=== PATIENT | male | born 1980 | race Two or more races ===

== ENCOUNTER 2020-04-21 18:58 | Inpatient (IN) | payer MEDICAID ==
[~2020-04-21] VITALS: Ht 175.3 cm; Wt 138.3 kg
[~2020-04-21 18:58] MED LIST: ZOSYN IVPB 3.375 G in IV D5W 50ml IV ONE
--- NOTE | 2020-04-21 19:32 | NUR ---
PRANAV FROM A BOARD AND CARE TO ER BED 6. AWAKE BUT NON VERBAL. BROUGHT IN FOR WHAT APPEARS TO BE RESPIRATORY DISTRESS PER EMT REPORT. PT WAS NOTED GASPING FOR AIR AND DIAPHORETIC. PT WAS PLACED ON BVM AND DISTRESS GOT ALLIVIATED. PT WAS REPORTED WITH O2 SAT ABOVE 90% SINCE DRAIN TECHNICIAN TOOK PT. VENT SETTING AC18, VT600, O2 50% AND +5PEEP. WILL CONTINUE TO MONITOR PT
[2020-04-21 20:05] LABS: BASOPHILS # (AUTO) 0.1 /CMM (0.0-0.2); BASOPHILS % (AUTO) 0.3 % (0.0-2.0); EOSINOPHILS % (AUTO) 6.1 % (0.0-6.0); HEMATOCRIT 35 % (39-51); HEMOGLOBIN 11.3 g/dL (13.5-17.5); LYMPHOCYTES % (AUTO) 5.4 % (20.0-44.0); MEAN CORPUSCULAR HGB CONC 32 g/dl (31.0-36.0); MEAN CORPUSCULAR VOLUME 91 fL (80-96); MONOCYTES # (AUTO) 0.6 /CMM (0.1-1.30); MONOCYTES % (AUTO) 3.2 % (2.0-12.0); NEUTROPHILS # (AUTO) 16.1 /CMM (1.8-8.9); PLATELET COUNT (AUTO) 447 /CMM (150-450); RED BLOOD CELL COUNT(AUTO) 3.86 MIL/uL (4.5-6.0); WHITE BLOOD COUNT (AUTO) 18.9 K/uL (4.3-11.0)
[2020-04-21 20:10] LABS: ABG BASE EXCESS 3.5 mmol/L; ABG PCO2 45.5 mmHg (35.0-45.0); ABG PH 7.416 (7.350-7.450); ABG PO2 93.4 mmHg (75.0-100.0); AaDO2 574.1 mmHg; COHb 0.8 % (0.5-1.5); MetHb 0.3 % (0.0-1.5); O2Hb 95.9 % (94.0-97.0); PEEP,BG 5 cm H2O; SITE, ABG Right Radial; VT, ABG 600 mL
[2020-04-21 20:18] LABS: CALCIUM, SERUM 9.4 mg/dL (8.5-10.1); CARBON DIOXIDE 31 mmol/L (21-32); CHLORIDE 104 mmol/L (98-107); GLUCOSE 139 mg/dL (74-106); POTASSIUM 3.1 mmol/L (3.5-5.1); SODIUM SERUM 143 mmol/L (136-145); UREA NITROGEN, BLOOD 29 mg/dL (7-18)
[2020-04-21] MEDS ORDERED: VANCOMYCIN 1 GM in IV D5W 250 ML IV ONE (20:30)
[2020-04-21] MEDS ORDERED: PIPERACILLIN /TAZOBACTAM 3.375 G in IV D5W 50 ML IV ONE (20:30)
[2020-04-21] MEDS ORDERED: IV NS 0.9% 1,000 ML IV ONE (20:30)
[2020-04-21 20:33] LABS: ALANINE AMINOTRANSFERASE 9 U/L (12-78); ALBUMIN 2.5 g/dL (3.4-5.0); ALKALINE PHOSPHATASE 66 U/L (46-116); ASPARTATE AMINOTRANSFERASE 14 U/L (15-37); B-TYPE NATRIURETIC PEPTIDE 279 PG/ML (0-125); BILIRUBIN,DIRECT 0.1 mg/dL (0.0-0.2); BILIRUBIN,TOTAL 0.2 mg/dL (0.2-1.0); TOTAL PROTEIN, SERUM 8.3 g/dL (6.4-8.2)
[2020-04-21] MEDS ORDERED: IV NS 0.9% 250 ML IV ONE (20:43)
[2020-04-21] MEDS ORDERED: IOHEXOL-350 100 ML VIAL IV ONE (20:43)
[2020-04-21] MEDS ORDERED: CT SWABBABLE VALVE TRANS SET 1 EA INFUS.SET MC ONE (20:43)
--- NOTE | 2020-04-21 20:57 | NUR ---
LAB CALLED REGARDING COVID NEGATIVE RESULT.
[2020-04-21] MEDS ORDERED: PIPERACILLIN /TAZOBACTAM 3.375 G VIAL IV ONE (21:18)
[2020-04-21] MEDS ORDERED: VANCOMYCIN 1 GM VIAL ONE (21:18)
--- NOTE | 2020-04-21 21:19 | NUR ---
back from ct on [facility] with emt, rn and radio presenter
--- NOTE | 2020-04-21 21:58 | NUR ---
report given to joesph peralta for berto.
[2020-04-21] MEDS ORDERED: Z GUARD REMEDY 2 OZ OINT TP PRN (22:00)
[2020-04-21] MEDS ORDERED: ZOLPIDEM TARTRATE 5 MG TABLET PO PRN (22:00)
[2020-04-21] MEDS ORDERED: ACETAMINOPHEN 325 MG TABLET PO PRN (22:00)
[2020-04-21] MEDS ORDERED: ONDANSETRON HCL/PF 4 MG/2 ML VIAL IVP PRN (22:00)
[2020-04-21] MEDS ORDERED: MAGNESIUM HYDROXIDE 30 ML UDC PO PRN (22:00)
[2020-04-21] MEDS ORDERED: MAG HYDROX/AL HYDROX/SIMETH 30 ML UDC PO PRN (22:00)
--- NOTE | 2020-04-21 22:05 | NUR ---
Received report from INOCENCIO Varela for KRISTINA
--- NOTE | 2020-04-21 22:22 | NUR ---
pt transported to unit on [facility] with emt, rt and rn at bedside w/ acls protocol. nad during transport.
[2020-04-21] MEDS ORDERED: VANCOMYCIN 1 GM in IV D5W 250ml IV ONE (22:30)
[2020-04-21] MEDS ORDERED: VANCOMYCIN 2 GM in IV D5W 500 ML IV ONE (22:30)
[2020-04-21] MEDS: IV D5/0.45 NACL 1,000 ML IV PRN (22:36)
[2020-04-21 22:55] VITALS: BP 139/95
[2020-04-21 23:00] VITALS: BP 142/88
[2020-04-21] MEDS: POTASSIUM CL. PREMIX PERIPHER. 50 ML IV SCH (23:19)
--- NOTE | 2020-04-21 23:25 | NUR ---
FACETERSTOCK HANDLER FLOORPERSON NOTE: Pt transferred to unit via gurney accompanied by RN and EMT. Transferred to bed, hooked up to monitor, and bathed. Skin check done w/ wounds noted. Pt awake, opens eyes but does not track or follow commands. On trach and mechanical ventilation tolerating settings well. No SOB or resp distress noted. ANNELIESE midline patent and flushed. Dressing c/d/i. GT site intact, NPO dx. Restraints placed due to pt scratching/pulling at grady catheter. Grady catheter in place, patent and draining cloudy yellow urine via gravity. Safety measures in place. Will continue to monitor.
[2020-04-21 23:31] VITALS: BP 142/88
[2020-04-21] MEDS: ALBUTEROL FS 2.5 MG/0.5 ML VIAL.NEB NEB SCH (23:33)
[2020-04-21] MEDS: IPRATROPIUM NEB FS 0.5 MG/2.5 ML AMPUL.NEB NEB SCH (23:33)
[2020-04-22] VITALS (25 sets, daily range): BP systolic 120–178; BP diastolic 75–117
[2020-04-22] MEDS: POTASSIUM CL. PREMIX PERIPHER. 50 ML IV SCH ×3 (00:18→02:20)
[2020-04-22] MEDS ORDERED: PIPERACILLIN /TAZOBACTAM 3.375 G VIAL IV ONE (03:19)
[2020-04-22] MEDS: ALBUTEROL FS 2.5 MG/0.5 ML VIAL.NEB NEB SCH ×5 (03:29→19:49)
[2020-04-22] MEDS: IPRATROPIUM NEB FS 0.5 MG/2.5 ML AMPUL.NEB NEB SCH ×5 (03:29→19:49)
[2020-04-22] MEDS ORDERED: PIPERACILLIN /TAZOBACTAM 3.375 G in IV D5W 50 ML IV ONE (04:00)
[2020-04-22 05:19] LABS: CALCIUM, SERUM 9.1 mg/dL (8.5-10.1); MAGNESIUM 2.5 mg/dL (1.8-2.4); PHOSPHORUS 4.2 mg/dL (2.5-4.9); POTASSIUM 3.9 mmol/L (3.5-5.1)
[2020-04-22 05:31] LABS: THYROID STIMULATING HORMONE 1.348 uIU/mL (0.358-3.74)
[2020-04-22] MEDS ORDERED: VANCOMYCIN 1.25 GM in IV D5W 250 ML IV SCH (07:00)
--- NOTE | 2020-04-22 07:10 | NUR ---
PHOTOGRAMMETRIC SURVEYOR NOTES RECEIVED PATIENT AWAKE , TRACKS , ABLE TO FOLLOW SIMPLE COMMANDS , NOT IN ACUTE DISTRESS , RESPIRATIONS EVEN AND UNLABORED WITH SPO2 OF 100% VIA MECHANICAL VENT SETTINGS AC 18 TV 600 FIO2 100% AND PEEP OF 5 , TRACH OF SHILEY XLT [address] , SR 78 ON BEDSIDE MONITOR , GT PATENT AND INTACT CLAMPED , FC DRAINING VIA GRAVITY , BILATERAL SOFT WRIST RESTRAINS IN PLACE , ANNELIESE MIDLINE PATENT AND INTACT WITH D5 1/2 NS @ 75ML/HR INFUSING WELL , ALL NEEDS ATTENDED , WILL CONTINUE TO MONITOR .
--- NOTE | 2020-04-22 07:16 | NUR ---
DEALER SALES REP CLOSING NOTES: No acute changes noted throughout shift. Remains on vent settings tolerating settings well. No SOB or resp distress noted throughout shift. ANNELIESE mid patent and flushed. Zarate in place. Kept clean/dry. All due meds given as ordered. Safety measures in place. Endorsed to AM nurse for KRISTINA.
[2020-04-22] MEDS: HYDROCODONE/APAP 5/325MG TABLET PO PRN ×2 (07:18→18:46)
[2020-04-22] MEDS: VANCOMYCIN 1.25 GM in IV D5W 250 ML IV SCH ×3 (07:37→21:25)
--- NOTE | 2020-04-22 07:46 | NUR ---
BUGGY MAN NOTES PAGED NURSING CHANNELING MACHINE RUNNER F/U FOR PICC INSERTION AND MEDICATION RECON
[2020-04-22] MEDS ORDERED: FINA5TAB4 GT (08:00)
[2020-04-22] MEDS ORDERED: HYDR100T27 GT (08:00)
[2020-04-22] MEDS ORDERED: LISI-603 GT (08:00)
[2020-04-22] MEDS ORDERED: AMLO-212 GT (08:00)
[2020-04-22] MEDS ORDERED: POLY17PO4 GT (08:00)
[2020-04-22] MEDS ORDERED: ENOX30DI SQ (08:00)
[2020-04-22] MEDS ORDERED: METO50TA16 GT (08:00)
[2020-04-22] MEDS ORDERED: NYST15PO4 TP (08:00)
[2020-04-22] MEDS ORDERED: BUME1TAB8 PO (08:00)
[2020-04-22] MEDS ORDERED: LEVO25TA7 GT (08:00)
[2020-04-22] MEDS ORDERED: DOXA2TAB2 GT (08:00)
--- NOTE | 2020-04-22 08:00 | NUR ---
RT Pt received trached on mechanical ventilation with noted settings. Vent is plugged into red outlet. No SOB or respiratory distress noted. Addendum: 04/22/20 at 1138 by BRIANA FRASER RT Amended: Links added.
[2020-04-22] MEDS ORDERED: MULT-754 GT (08:04)
[2020-04-22] MEDS ORDERED: ZINC1CAP2 GT (08:04)
[2020-04-22] MEDS ORDERED: FERR325T23 GT (08:04)
[2020-04-22] MEDS ORDERED: ASCO-352 GT (08:04)
[2020-04-22] MEDS ORDERED: ACID1TAB12 GT (08:56)
[2020-04-22] MEDS ORDERED: CLON0.3T GT (08:56)
[2020-04-22] MEDS ORDERED: MORP15TA GT (08:56)
--- NOTE | 2020-04-22 08:57 | NUR ---
PEST CONTROLLER ASSISTANT NOTES MEDICATION RECON PLACED ,
[2020-04-22] MEDS ORDERED: PANTOPRAZOLE 40 MG VIAL IV SCH (09:00)
[2020-04-22] MEDS: FAMOTIDINE/PF INJ 20 MG/2 ML VIAL IV SCH ×2 (09:09→21:24)
[2020-04-22] MEDS: PIPERACILLIN /TAZOBACTAM 3.375 G in IV D5W 100 ML IV SCH ×2 (09:09→17:03)
[2020-04-22 09:13] LABS: BASOPHILS # (AUTO) 0.1 /CMM (0.0-0.2); EOSINOPHILS % (AUTO) 9.8 % (0.0-6.0); HEMATOCRIT 34 % (39-51); LYMPHOCYTES # (AUTO) 2.2 /CMM (0.8-4.8); LYMPHOCYTES % (AUTO) 17.3 % (20.0-44.0); MEAN CORPUSCULAR HGB CONC 32 g/dl (31.0-36.0); MEAN CORPUSCULAR VOLUME 92 fL (80-96); MONOCYTES # (AUTO) 0.8 /CMM (0.1-1.30); MONOCYTES % (AUTO) 6.1 % (2.0-12.0); NEUTROPHILS # (AUTO) 8.4 /CMM (1.8-8.9); NEUTROPHILS % (AUTO) 65.8 % (43.0-81.0); PLATELET COUNT (AUTO) 404 /CMM (150-450); RED BLOOD CELL COUNT(AUTO) 3.76 MIL/uL (4.5-6.0); WHITE BLOOD COUNT (AUTO) 12.7 K/uL (4.3-11.0)
--- NOTE | 2020-04-22 09:33 | NUR ---
POULTRYMAN NOTES PAGED EPIC (MISA LENA) PT BP IS ELEVATED 178/107 , AND TO F/U MED RECON, SPOKE WITH MEGAN LEFT A MESSAGE , AWAITING FOR CALL BACK
--- NOTE | 2020-04-22 10:30 | NUR ---
CHANGE CONTROL SPECIALIST NOTES RECEIVED AN ORDER OF HYDRALAZINE 10MG Q4 PRN FOR SBP > 165MMHG , ORDER CARRIED OUT
[2020-04-22] MEDS ORDERED: hydrALAZINE HCL IV 20 MG VIAL IV PRN (11:00)
--- NOTE | 2020-04-22 11:28 | NUR ---
VENEER SORTER NOTES TRANSFERED PT TO [facility] BED , PT STABLE , NO ACUTE EVENTS NOTED , WILL CONTINUE TO MONITOR .
[2020-04-22] MEDS: IV D5/0.45 NACL 1,000 ML IV PRN (14:28)
--- NOTE | 2020-04-22 17:20 | NUR ---
HEAT TREAT FURNACE OPERATOR NOTES OK TO DOWNGRADE PER DR NUÑEZ IF FIO2 TITRATED DOWN , CURRENT FIO2 OF 60% WITH NO SIGNS OF DISTRESS , SPO2 OF 100% , MD AWARE ,WILL CONTINUE TO MONITOR
--- NOTE | 2020-04-22 17:23 | NUR ---
WEB PRESS OPERATOR APPRENTICE NOTES NOTIFIED DR MISA PAREDES TO REVIEW HOME MEDS , JAVA CORE DEVELOPER AWARE .
--- NOTE | 2020-04-22 17:23 | NUR ---
SPORTS RECRUITER NOTES PT TOLERATING CURRENT VENT SETTINGS WITH FIO2 OF 45% WITH NO SIGNS OF DISTRESS , VS STABLE , WILL CONTINUE TO MONITOR .
[2020-04-22] MEDS: ENALAPRILAT INJ (1.25 MG/ML) 1.25 MG/ML VIAL IV PRN (18:06)
--- NOTE | 2020-04-22 18:51 | NUR ---
BARREL SCRAPER NOTES PATIENT STABLE AT THIS TIME , ABLE TO FOLLOW SIMPLE COMMANDS , NOT IN ACUTE DISTRESS , RESPIRATIONS EVEN AND UNLABORED WITH SPO2 OF 100% VIA MECHANICAL VENT SETTINGS AC 18 TV 600 FIO2 45% AND PEEP OF 5 , TRACH OF SHILEY XLT IN PLACE , SR 72 ON BEDSIDE MONITOR , GT PATENT AND INTACT CLAMPED , FC DRAINING VIA GRAVITY , RIGHT WRIST RESTRAINS IN PLACE , JUNIE MIDLINE PATENT AND INTACT WITH D5 1/2 NS @ 75ML/HR AND NS @ TKO INFUSING WELL , ALL NEEDS ATTENDED , REPORT GIVEN TO JEREL FOR CONTINUITY OF CARE .
--- NOTE | 2020-04-22 19:14 | NUR ---
FLIGHT STEWARD OPENING NOTES: Rec'd pt in bed, awake. On trach and mechanical ventilation tolerating settings well. No SOB or resp distress noted. SR on tele monitor. GT intact, patent and clamped, pt NPO. JUNIE midline patent and flushed w/ D5 1/2NS infusing at 75ml/hr and NS at TKO. Right wrist restraint in place. Will remove and check circulation per protocol. Zarate catheter patent and draining urine via gravity. Safety measures in place. Will continue to monitor.
[2020-04-22] MEDS ORDERED: hydrALAZINE HCL 50 MG TABLET PO PRN (20:30)
--- NOTE | 2020-04-22 20:40 | NUR ---
wringer operator gave report to INOCENCIO Vázquez for KRISTINA.
--- NOTE | 2020-04-22 20:54 | NUR ---
Transferred pt to rm [id number] via ACLS protocols w/ RT
--- NOTE | 2020-04-22 21:03 | NUR ---
R DEVELOPERPRESIDENT COLLEGE OR UNIVERSITY NOTES PATIENT TRANSFERRED FROM ICU VIA ACLS PROTOCOL IN STABLE CONDITION; BARIATRIC BED PRESENT. AWAKE, NONVERBAL, ABLE TO OPEN EYES. VENT DEPENDENT; TOLERATING SETTINGS WELL; NO S/S OF ACUTE RESPIRATORY DISTRESS; BREATHING IS EVEN AND UNLABORED. TELE MONITOR READING NSR. MIDLINE PRESENT ON RIGHT UPPER ARM, INTACT & PATENT. MARIN CATH PRESENT; CLEAR YELLOW URINE DRAINING WELL. SAFETY MEASURES IN PLACE AND PATIENT'S NEEDS MET. BED LOCKED, ALARM ON, SIDE RAILS X3, CALL LIGHT WITHIN REACH. WILL CONTINUE TO MONITOR.
[2020-04-22] MEDS: CLONIDINE HCL 0.1 MG TABLET GT SCH (21:23)
[2020-04-22] MEDS: BUMETANIDE (1 MG) 1 MG TABLET PO SCH (21:24)
[2020-04-22] MEDS: AMLODIPINE BESYLATE 5 MG TABLET GT SCH (21:24)
[2020-04-22] MEDS: DOXAZOSIN MESYLATE (1 MG) 1 MG TABLET PO SCH (21:24)
[2020-04-22] MEDS: LISINOPRIL (20MG) 20 MG TABLET GT SCH (21:24)
[2020-04-23] VITALS (7 sets, daily range): BP systolic 145–185; BP diastolic 89–117
[2020-04-23] MEDS: IPRATROPIUM NEB FS 0.5 MG/2.5 ML AMPUL.NEB NEB SCH ×7 (00:03→23:44)
[2020-04-23] MEDS: ALBUTEROL FS 2.5 MG/0.5 ML VIAL.NEB NEB SCH ×7 (00:03→23:44)
[2020-04-23] MEDS: PIPERACILLIN /TAZOBACTAM 3.375 G in IV D5W 100 ML IV SCH ×3 (02:13→18:09)
[2020-04-23] MEDS: VANCOMYCIN 1.25 GM in IV D5W 250 ML IV SCH (05:00)
[2020-04-23] MEDS: CLONIDINE HCL 0.1 MG TABLET GT SCH ×3 (05:55→21:32)
--- NOTE | 2020-04-23 05:55 | NUR ---
TELEPHONE RECORDER NOTES PATIENT'S MIDLINE ON RIGHT UPPER ARM DISLODGED DURING PATIENT CARE. CHARGE NURSE AND NURSING LANDSCAPE TECHNICIAN MADE AWARE. AWAITING NEW MIDLINE INSERTION.
--- NOTE | 2020-04-23 07:10 | NUR ---
PAPER MILL SUPERVISOR CLOSING NOTES PATIENT SLEEPING. TOLERATING VENT SETTINGS WELL; NO S/S OF ACUTE RESPIRATORY DISTRESS; BREATHING IS EVEN AND UNLABORED; CONTINUOUS PULSE OX READING 100%. TELE MONITOR READING NSR. MARIN CATH REMAINS INTACT & PATENT. SAFETY MEASURES IN PLACE AND PATIENT'S NEEDS MET. BED LOCKED, HOB ELEVATED, SIDE RAILS X3, CALL LIGHT WITHIN REACH. ENDORSED TO DAY SHIFT RN PLAN OF CARE.
--- NOTE | 2020-04-23 07:10 | NUR ---
RN OPENING NOTES RECEIVED PT SLEEPING BUT EASILY AROUSED. TOLERATING VENT SETTINGS WELL. NO S/S OF ACUTE RESPIRATORY DISTRESS. CONTINUOUS PULSE OX READING 100%. TELE MONITOR READING NSR. MARIN CATH INTACT & PATENT. SAFETY MEASURES IN PLACE. CALL LIGHT WITHIN REACH. BED LOCKED AND AT LOWEST POSITION WITH SIDE RAILS X3. HOB ELEVATED. WILL CONTINUE TO MONITOR
[2020-04-23] MEDS: ZINC SULFATE 220 MG CAPSULE GT SCH (09:45)
[2020-04-23] MEDS: POLYETHYLENE GLYCOL 3350 17 GM POWD.PACK GT SCH (09:45)
[2020-04-23] MEDS: LEVOTHYROXINE SODIUM 25 MCG TABLET GT SCH (09:46)
[2020-04-23] MEDS: FINASTERIDE (5 MG) 5 MG TABLET GT SCH (09:46)
[2020-04-23] MEDS: AMLODIPINE BESYLATE 5 MG TABLET GT SCH ×2 (09:46→21:33)
[2020-04-23] MEDS: METOPROLOL TARTRATE 50 MG TABLET GT SCH ×2 (09:47→16:54)
[2020-04-23] MEDS: BUMETANIDE (1 MG) 1 MG TABLET PO SCH ×2 (09:47→21:37)
[2020-04-23] MEDS: LISINOPRIL (20MG) 20 MG TABLET GT SCH ×2 (09:47→21:35)
[2020-04-23] MEDS: FERROUS SULFATE (325 MG) 325 MG/TAB TABLET GT SCH (09:47)
[2020-04-23] MEDS: ACIDOPHILUS/BULGARICUS 1 EACH TAB.CHEW GT SCH (09:48)
[2020-04-23] MEDS: FAMOTIDINE/PF INJ 20 MG/2 ML VIAL IV SCH ×2 (09:48→21:34)
[2020-04-23] MEDS: NYSTATIN TOP POWDER 15 GM BOTTLE TP SCH ×2 (09:48→16:54)
[2020-04-23 09:51] LABS: CALCIUM, SERUM 8.9 mg/dL (8.5-10.1); CREATININE 0.8 mg/dL (0.6-1.3); POTASSIUM 2.9 mmol/L (3.5-5.1)
--- NOTE | 2020-04-23 19:20 | NUR ---
RN CLOSING NOTES PT RESTING IN BED. TOLERATING VENT SETTINGS WELL. NO S/S OF ACUTE RESPIRATORY DISTRESS. CONTINUOUS PULSE OX READING 100%. TELE MONITOR READING NSR. MARIN CATH INTACT & PATENT. JUNIE MIDLINE INSERTED, INTACT AND PATENT. SAFETY MEASURES IN PLACE. CALL LIGHT WITHIN REACH. BED LOCKED AND AT LOWEST POSITION WITH SIDE RAILS X3. HOB ELEVATED. WILL ENDORSE TO NIGHT NURSE FOR KRISTINA
--- NOTE | 2020-04-23 19:31 | NUR ---
SERVICE CLERK OPENING NOTES PATIENT AWAKE, NONVERBAL, OPENS EYES. TOLERATING VENT SETTINGS WELL; NO S/S OF ACUTE RESPIRATORY DISTRESS; BREATHING IS EVEN AND UNLABORED. TELE MONITOR READING NSR. MARIN CATH PRESENT AND DRAINING WELL. MIDLINE PRESENT ON RIGHT UPPER ARM WITH IVPB ZOSYN RUNNING AT 25 ML/HR. SOFT RESTRAINT PRESENT ON RIGHT WRIST FOR PATIENT SAFETY; SKIN CIRCULATION WNL. SAFETY MEASURES IN PLACE AND PATIENT'S NEEDS MET. BED LOCKED, HOB ELEVATED, SIDE RAILS X3, CALL LIGHT WITHIN REACH. WILL CONTINUE TO MONITOR.
[2020-04-23] MEDS ORDERED: VANCOMYCIN 1.25 GM in IV D5W 250 ML IV SCH (21:00)
[2020-04-23] MEDS: DOXAZOSIN MESYLATE (1 MG) 1 MG TABLET PO SCH (21:34)
--- NOTE | 2020-04-23 21:34 | NUR ---
WATER PUMPING STATION ENGINEER NOTE PATIENT HAD AN EPISODE OF VOMITING; LIGHT BROWNISH CLEAR FLUID NOTED. ADMINISTERED PRN ZOFRAN IV. WILL CONTINUE TO MONITOR.
[2020-04-24] VITALS (7 sets, daily range): BP systolic 125–168; BP diastolic 85–127
[2020-04-24] MEDS ORDERED: IPRATROPIUM NEB FS 0.5 MG/2.5 ML AMPUL.NEB NEB PRN (01:00)
[2020-04-24] MEDS ORDERED: ALBUTEROL FS 2.5 MG/3 ML VIAL.NEB NEB PRN (01:00)
[2020-04-24] MEDS ORDERED: POTASSIUM CHLORIDE 10 MEQ/50 ML PREMIXED IVPB FOR PERIPHERAL LINE IV ONE (01:30)
[2020-04-24] MEDS: ENALAPRILAT INJ (1.25 MG/ML) 1.25 MG/ML VIAL IV PRN (01:47)
--- NOTE | 2020-04-24 01:47 | NUR ---
ASSISTANT GENERAL MANAGER NOTE PATIENT'S BP: 163/118, HR: 104. ADMINISTERED PRN VASOTEC 1.25 MG IV PER MD ORDERS. WILL CONTINUE TO MONITOR.
--- NOTE | 2020-04-24 01:47 | NUR ---
TURNING MACHINE OPERATOR HELPER NOTES PATIENT'S BP: 163/118, HR: 104. ADMINISTERED PRN VASOTEC 1.25MG IV PER MD ORDERS. WILL CONTINUE TO MONITOR.
[2020-04-24] MEDS: PIPERACILLIN /TAZOBACTAM 3.375 G in IV D5W 100 ML IV SCH ×2 (01:51→09:55)
[2020-04-24] MEDS: POTASSIUM CL. PREMIX PERIPHER. 50 ML IV SCH ×10 (01:53→15:05)
[2020-04-24] MEDS: ALBUTEROL FS 2.5 MG/0.5 ML VIAL.NEB NEB SCH ×6 (03:41→23:13)
[2020-04-24] MEDS: IPRATROPIUM NEB FS 0.5 MG/2.5 ML AMPUL.NEB NEB SCH ×6 (03:41→23:13)
[2020-04-24] MEDS: CLONIDINE HCL 0.1 MG TABLET GT SCH ×3 (05:29→21:44)
--- NOTE | 2020-04-24 06:10 | NUR ---
ASSAULT BOAT COXSWAIN NOTE PATIENT EXPERIENCED EPISODE OF VOMITING. BROWNISH FLUID PRESENT IN GTUBE; ASPIRATED 700 CC OF DARK BROWNISH GREEN FLUID FROM GTUBE. NOTIFIED LABORATORY ANIMAL CARE VETERINARIAN SANTO BOLTON.
[2020-04-24 07:20] LABS: BASOPHILS # (AUTO) 0.1 /CMM (0.0-0.2); BASOPHILS % (AUTO) 0.4 % (0.0-2.0); EOSINOPHILS % (AUTO) 4.7 % (0.0-6.0); HEMATOCRIT 35 % (39-51); HEMOGLOBIN 11.4 g/dL (13.5-17.5); LYMPHOCYTES # (AUTO) 1.3 /CMM (0.8-4.8); LYMPHOCYTES % (AUTO) 9.9 % (20.0-44.0); MEAN CORPUSCULAR HGB CONC 32 g/dl (31.0-36.0); MEAN CORPUSCULAR VOLUME 90 fL (80-96); MONOCYTES # (AUTO) 0.7 /CMM (0.1-1.30); MONOCYTES % (AUTO) 5.7 % (2.0-12.0); NEUTROPHILS # (AUTO) 10.1 /CMM (1.8-8.9); NEUTROPHILS % (AUTO) 79.3 % (43.0-81.0); PLATELET COUNT (AUTO) 421 /CMM (150-450); RED BLOOD CELL COUNT(AUTO) 3.92 MIL/uL (4.5-6.0); WHITE BLOOD COUNT (AUTO) 12.8 K/uL (4.3-11.0)
--- NOTE | 2020-04-24 07:30 | NUR ---
RN OPENING NOTE PATIENT AWAKE, NONVERBAL, OPENS EYES OCCASIONALLY TO VERBAL STIMULI. PT ON VENT SETTINGS PER MD ORDER, TOLERATING WELL, NO SIGNS OF RESP DISTRESS OR SOB; BREATHING IS EVEN AND UNLABORED. TELE MONITOR READING NSR HR IN THE 90s. PT HAS MARIN CATH PRESENT DRAINING TO GRAVITY WITH YELLOW URINE. PT HAS JUNIE MIDLINE INFUSING 75ML/HR. SOFT RESTRAINT PRESENT ON RIGHT WRIST FOR PATIENT SAFETY; SKIN CIRCULATION WNL. PT HAS SACRAL WOUND AND SCRATCHES THROUGHOUT ARMS. PER RN MORNING REPORT PT HAD 2 VOMITING EPISODES ALONG WITH ASPIRATING 700ML BROWN FLUID FROM G-TUBE. WILL NOTIFY MD. SAFETY MEASURES IN PLACE AND PATIENT'S NEEDS MET. BED LOCKED, HOB ELEVATED, SIDE RAILS X3, CALL LIGHT WITHIN REACH. WILL CONTINUE TO MONITOR.
--- NOTE | 2020-04-24 07:46 | NUR ---
SUPERINTENDENT METER TESTS CLOSING NOTES PATIENT NONVERBAL, OPENS EYES. TOLERATING VENT SETTINGS WELL; NO S/S OF ACUTE RESPIRATORY DISTRESS; BREATHING IS EVEN AND UNLABORED. NO S/S OF PAIN NOTED. TELE MONITOR READING NSR. MARIN CATH REMAINS INTACT & PATENT. MIDLINE PRESENT ON RIGHT UPPER ARM WITH KCL RUNNING AT 50 ML/HR. SOFT RESTRAINT PRESENT ON RIGHT WRIST FOR PATIENT SAFETY; SKIN CIRCULATION WNL. SAFETY MEASURES IN PLACE AND PATIENT'S NEEDS MET. BED LOCKED, HOB ELEVATED, SIDE RAILS X3, CALL LIGHT WITHIN REACH. ENDORSED TO DAY SHIFT RN PLAN OF CARE.
[2020-04-24 07:54] LABS: CALCIUM, SERUM 8.8 mg/dL (8.5-10.1); MAGNESIUM 2.2 mg/dL (1.8-2.4); PHOSPHORUS 4.3 mg/dL (2.5-4.9); POTASSIUM 3.2 mmol/L (3.5-5.1)
[2020-04-24] MEDS: ACIDOPHILUS/BULGARICUS 1 EACH TAB.CHEW GT SCH (08:58)
[2020-04-24] MEDS: POLYETHYLENE GLYCOL 3350 17 GM POWD.PACK GT SCH (08:58)
[2020-04-24] MEDS: LEVOTHYROXINE SODIUM 25 MCG TABLET GT SCH (08:58)
[2020-04-24] MEDS: BUMETANIDE (1 MG) 1 MG TABLET PO SCH ×2 (08:58→21:45)
[2020-04-24] MEDS: ZINC SULFATE 220 MG CAPSULE GT SCH (08:59)
[2020-04-24] MEDS: FAMOTIDINE/PF INJ 20 MG/2 ML VIAL IV SCH ×2 (08:59→21:46)
[2020-04-24] MEDS: FERROUS SULFATE (325 MG) 325 MG/TAB TABLET GT SCH (08:59)
[2020-04-24] MEDS: METOPROLOL TARTRATE 50 MG TABLET GT SCH ×2 (09:00→16:50)
[2020-04-24] MEDS: AMLODIPINE BESYLATE 5 MG TABLET GT SCH ×2 (09:00→21:45)
[2020-04-24] MEDS: FINASTERIDE (5 MG) 5 MG TABLET GT SCH (09:01)
[2020-04-24] MEDS: LISINOPRIL (20MG) 20 MG TABLET GT SCH ×2 (09:01→21:46)
[2020-04-24] MEDS: NYSTATIN TOP POWDER 15 GM BOTTLE TP SCH (09:55)
--- NOTE | 2020-04-24 10:00 | NUR ---
RN NOTE PER PHARMACIST MANAGET. OKAY TO INCREASE PIPERICILLIN IV ANTIBIOTIC TO 200ML/HR TO MAKE TIME TO INFUSE VANCO IV AFTERWARDS THEY ARE NOT COMPATIBLE.
--- NOTE | 2020-04-24 10:10 | NUR ---
RN NOTE WITHDREW 70ML OF BROWN LIQUID FROM PT'S GTUBE. NOTIFIED DR MAYER ABOUT 700ML BROWN FLUID WITHDRAWN LAST SHIFT AND PROJECTILE VOMITUS x2 LAST SHIFT. PER DR MAYER, GIVE ALL GTUBE MEDS, REGLAN 5MG IV TID AND VASOTEC 1.25MG IV Q4 PRN FOR SBP > 165
[2020-04-24] MEDS: VANCOMYCIN 1 GM in IV D5W 250ml IV SCH ×2 (10:54→21:47)
[2020-04-24] MEDS ORDERED: ENALAPRILAT INJ (1.25 MG/ML) 1.25 MG/ML VIAL IV PRN (11:00)
[2020-04-24] MEDS: DAKINS QUARTER STRENGTH (0.125%) 480 ML BOTTLE TOP SCH (12:26)
[2020-04-24] MEDS: METOCLOPRAMIDE HCL 10 MG/2 ML VIAL IV SCH ×2 (12:33→16:50)
--- NOTE | 2020-04-24 13:20 | NUR ---
RECORDS MANAGER NOTES RECEIVED REPORT FROM INOCENCIO JONES. PATIENT RECEIVED AWAKE IN BED A/O X3. ABLE TO MAKE NEEDS KNOWN. ON ROOM AIR, BREATHING EVEN AND UNLABORED. PT ON B/L SOFT WRIST RESTRAINTS, SKIN IS INTACT WITH GOOD CIRCULATION NOTED. TELEMONITORING SHOWS SR WITH HR ON 80''S, NO C/O OF CARDIAC DISTRESS VOICED. MARIN DRAINING URINE. ANNELIESE PICC LINE IN PLACE WITH HEPARIN DRIP INFUSING AT 1600U/HR (32ML/HR). SAFETY MEASURES MAINTAINED: , BED IN LOWEST POSITION, LOCKED, SIDE RAILS UP X2, CALL LIGHT WITHIN REACH. WILL CONTINUE TO MONITOR PATIENT FOR ANY CHANGES. Addendum: 04/24/20 at 1645 by AROLDO GABRIEL RN CORRECTIONS: THIS PROGRESS NOTES IS FOR ANOTHER PATIENT . SORRY!
--- NOTE | 2020-04-24 13:50 | NUR ---
RN NOTE GAVE REPORT TO CHENG PAINTER FOR KRISTINA. PT IN STABLE CONDITION. SAFETY PRECAUTIONS IN PLACE
--- NOTE | 2020-04-24 13:58 | NUR ---
DIRECTOR OF FINANCE NOTES RECEIVED REPORT FROM INOCENCIO CHARLES. PATIENT IN BED LYING AT MODERATE HIGH BACKREST. A/O X 1. OPEN EYES TO TACTILE AND VERBAL STIMULI. PT ON MECHANICAL VENT AT PRESCRIBED PARAMETERS, TOLERATING SETTINGS WELL WITH NO ACUTE RESPIRATORY DISTRESS NOTED. PT WITH RIGHT SOFT WRIST RESTRAINT, GOOD CIRCULATION NOTED. TELE-MONITORING SHOWS SR WITH HR ON 90'S AT THIS TIME, NO S/S OF CARDIAC DISTRESS NOTED. G-TUBE IN PLACE AND PATENT, FEEDING ON HOLD PER DR MAYER. MARIN DRAINING URINE. JUNIE PICC LINE IN PLACE, IVF INFUSING ORDERED. SAFETY MEASURES MAINTAINED: BED IN LOWEST POSITION, LOCKED, SIDE RAILS UP X3, CALL LIGHT WITHIN REACH. WILL CONTINUE TO MONITOR PATIENT FOR ANY CHANGES.
[2020-04-24] MEDS: ZOSYN IVPB 3.375 G in IV D5W 50ml IV SCH ×2 (16:17→23:53)
[2020-04-24] MEDS: CLOTRIMAZOLE 1% 15 GM TUBE TP SCH (16:49)
--- NOTE | 2020-04-24 18:41 | NUR ---
BARGAIN TABLE CLERK CLOSING NOTES PATIENT ASLEEP IN BED AT THIS TIME, AWAKENS TO TACTILE AND VERBAL STIMULI. HOB KEPT ELEVATED. MAINTAINED ON MECHANICAL VENTILATOR AT PRESCRIBED PARAMETERS, TOLERATING SETTINGS WELL, NO ACUTE RESPIRATORY DISTRESS NOTED DURING SHIFT. RIGHT SOFT WRIST RESTRAINT IN PLACE, GOOD PERIPHERAL PULSE NOTED. TELE-MONITORING SHOWS SR WITH HR ON 90'S AT THIS TIME, NO S/S OF CARDIAC DISTRESS NOTED. G-TUBE IN PLACE, PATENT AND CLAMPED. FEEDING ON HOLD PER DR MAYER. PT STILL NOTED WITH THIN BROWNISH SECRETIONS ON G-TUBE. MARIN DRAINING CLOUDY YELLOWISH URINE. JUNIE PICC LINE IN PLACE, IVF INFUSING ORDERED. PT TURNED AND REPOSITIONED Q 2HRS AND PRN. ALL NEEDS AND CARE ANTICIPATED AND MET. SAFETY MEASURES MAINTAINED: BED IN LOWEST POSITION, LOCKED, SIDE RAILS UP X3, CALL LIGHT WITHIN REACH. WILL ENDORSE TO SMALL LOT OPERATOR NURSE FOR KRISTINA.
[2020-04-24] MEDS: IV D5/0.45 NACL 1,000 ML IV PRN (19:17)
--- NOTE | 2020-04-24 20:06 | NUR ---
TELE/RN OPENING NOTE Patient asleep in bed, A/O x1, non-verbal, opens eyes to stimuli. HOB elevated Tele monitor reading sinus rhythm. Patient on mechanical ventilation: Shiley 7, AC 18 TV600 PEEP5 YxO800%. No acute distress or SOB noted. Skin warm, pink, dry. Generalized abrasions noted throughout body. Right wrist restraint in place, brachial pulses 2+, symmetrical. No signs of skin breakdown. Sacral wound noted, minimal drainage. G-tube clamped per MD order. JUNIE midline running D51/2 NS @ 75 ml/hr, no signs of redness or infiltration. Zarate catheter in place, urine output clear and yellow. Bony prominences off loaded. Bed in low position, wheels locked, side rails up x2, call light within reach.
[2020-04-24] MEDS: DOXAZOSIN MESYLATE (1 MG) 1 MG TABLET PO SCH (21:44)
--- NOTE | 2020-04-25 | NUR ---
RECEIVED CRITICAL LAB VANCO TROUGH [address] MONTEIRO . PER DR MONTEIRO NO ORDER.,DOSE PER PHARMACY. CALLED [facility], AND RECEIVED AN ORDER FOR VANCO TROUGH SCHEDULED FOR 0800 O'CLOCK.
[2020-04-25] MEDS: ENALAPRILAT INJ (1.25 MG/ML) 1.25 MG/ML VIAL IV PRN (02:30)
--- NOTE | 2020-04-25 02:35 | NUR ---
TELE/RN NOTE Patient BP193/92 P92. Administered PRN vasotec as ordered. Will continue to monitor.
[2020-04-25] MEDS: ALBUTEROL FS 2.5 MG/0.5 ML VIAL.NEB NEB SCH ×2 (03:52→07:40)
[2020-04-25] MEDS: IPRATROPIUM NEB FS 0.5 MG/2.5 ML AMPUL.NEB NEB SCH ×6 (03:52→23:28)
[2020-04-25] MEDS: ZOSYN IVPB 3.375 G in IV D5W 50ml IV SCH ×4 (04:25→22:44)
[2020-04-25] MEDS: CLONIDINE HCL 0.1 MG TABLET GT SCH ×3 (04:29→21:18)
--- NOTE | 2020-04-25 06:49 | NUR ---
TELE/RN CLOSING NOTE Patient asleep in bed, A/O x1, non-verbal, opens eyes to stimuli. HOB elevated. Tele monitor reading sinus rhythm. Patient on mechanical ventilation: Shiley 7, AC 18 TV600 PEEP5 FtE607%. No acute distress or SOB noted. Right wrist restraint in place, brachial pulses 2+, symmetrical. No signs of skin breakdown. Sacral wound noted, dressing changed. G-tube clamped per MD order. JUNIE midline running D51/2 NS @ 75 ml/hr, no signs of redness or infiltration. Zarate catheter in place, urine output clear and yellow. Bony prominences off loaded. Bed in low position, wheels locked, side rails up x2, call light within reach.
--- NOTE | 2020-04-25 07:34 | NUR ---
WOUND CARE CONSULT: (LATE ENTRY) PT WAS SEEN ON 04/24/20 FOR SKIN ASSESSMENT. PT PRESENTED WITH SCRATCH MCRAE, UNSTAGEABLE SACRAL ULCER AND RASH WITH REDNESS TO ABDOMINAL/GROIN FOLDS, PRESENT ON ADMISSION. RECOMMEND SURGICAL CONSULT. DR OWEN NAIK WAS NOTIFIED OF CONSULT REQUEST. RECOMMENDATIONS MADE FOR WOUND CARE AND SKIN PROTECTION. DISCUSSED WITH NURSING STAFF. ENERGY ADVISOR WAS NOTIFIED OF PT SCRATCHING BEHAVIOR. PT IS ON [facility] AIR BED. MD IN AGREEMENT WITH PLAN OF CARE.
[2020-04-25 07:55] LABS: BASOPHILS # (AUTO) 0.1 /CMM (0.0-0.2); BASOPHILS % (AUTO) 1.1 % (0.0-2.0); EOSINOPHILS % (AUTO) 10.6 % (0.0-6.0); HEMATOCRIT 32 % (39-51); HEMOGLOBIN 10.3 g/dL (13.5-17.5); LYMPHOCYTES % (AUTO) 16.1 % (20.0-44.0); MEAN CORPUSCULAR HGB CONC 32 g/dl (31.0-36.0); MEAN CORPUSCULAR VOLUME 92 fL (80-96); MONOCYTES # (AUTO) 0.9 /CMM (0.1-1.30); MONOCYTES % (AUTO) 7.5 % (2.0-12.0); NEUTROPHILS # (AUTO) 8.1 /CMM (1.8-8.9); NEUTROPHILS % (AUTO) 64.7 % (43.0-81.0); PLATELET COUNT (AUTO) 358 /CMM (150-450); RED BLOOD CELL COUNT(AUTO) 3.48 MIL/uL (4.5-6.0); WHITE BLOOD COUNT (AUTO) 12.5 K/uL (4.3-11.0)
[2020-04-25 07:57] LABS: CALCIUM, SERUM 8.4 mg/dL (8.5-10.1); CREATININE 1.6 mg/dL (0.6-1.3); MAGNESIUM 2.1 mg/dL (1.8-2.4); PHOSPHORUS 4.2 mg/dL (2.5-4.9); POTASSIUM 3.2 mmol/L (3.5-5.1)
[2020-04-25 08:00] VITALS: BP 152/89
--- NOTE | 2020-04-25 08:05 | NUR ---
CLINIC LICENSED PRACTICAL NURSE NOTE PATIENT ON VENT TOLERATING VENT SETTINGS WELL. PATIENT IN BED RESTING COMFORTABLY. PATIENT IN NO ACUTE DISTRESS. NO SOB NOTED. PATIENT BREATHING IS EVEN AND UNLABORED. HOB IS ELEVATED. GTUBE PATENT AND INTACT. PATIENT ON CARDIAC MONITORING READING SINUS RHYTHM HR 78. PATIENT BED ALARM IS ON. SAFETY PRECAUTIONS IN PLACE. PATIENT BED IS LOCKED AND IN LOWEST POSITION. CALL LIGHT WITHIN REACH. WILL CONTINUE TO MONITOR.
[2020-04-25] MEDS: POLYETHYLENE GLYCOL 3350 17 GM POWD.PACK GT SCH (08:28)
[2020-04-25] MEDS: LEVOTHYROXINE SODIUM 25 MCG TABLET GT SCH (08:29)
[2020-04-25] MEDS: FINASTERIDE (5 MG) 5 MG TABLET GT SCH (08:29)
[2020-04-25] MEDS: BUMETANIDE (1 MG) 1 MG TABLET PO SCH (09:00)
[2020-04-25] MEDS: LISINOPRIL (20MG) 20 MG TABLET GT SCH (09:01)
[2020-04-25] MEDS: ACIDOPHILUS/BULGARICUS 1 EACH TAB.CHEW GT SCH (09:01)
[2020-04-25] MEDS: FERROUS SULFATE (325 MG) 325 MG/TAB TABLET GT SCH (09:01)
[2020-04-25] MEDS: ZINC SULFATE 220 MG CAPSULE GT SCH (09:01)
[2020-04-25] MEDS: METOPROLOL TARTRATE 50 MG TABLET GT SCH ×2 (09:01→17:58)
[2020-04-25] MEDS: AMLODIPINE BESYLATE 5 MG TABLET GT SCH ×2 (09:02→21:18)
[2020-04-25] MEDS: METOCLOPRAMIDE HCL 10 MG/2 ML VIAL IV SCH ×3 (09:02→17:58)
[2020-04-25] MEDS: FAMOTIDINE/PF INJ 20 MG/2 ML VIAL IV SCH ×2 (09:02→21:18)
[2020-04-25] MEDS: CLOTRIMAZOLE 1% 15 GM TUBE TP SCH ×2 (09:03→18:00)
[2020-04-25] MEDS: DAKINS QUARTER STRENGTH (0.125%) 480 ML BOTTLE TOP SCH (09:04)
[2020-04-25] MEDS: VANCOMYCIN 1 GM in IV D5W 250ml IV SCH ×2 (09:06→21:19)
--- NOTE | 2020-04-25 11:00 | NUR ---
AMBULANCE DISPATCHER NOTE INFORMED NGA COLON PATIENT WITH RESIDUAL STILL AT 100ML. REMAIN GTUBE CLAMPED PER ISAIAH.
[2020-04-25] MEDS ORDERED: IPRATROPIUM NEB FS 0.5 MG/2.5 ML AMPUL.NEB NEB SCH (11:30)
[2020-04-25 12:00] VITALS: BP 150/80
[2020-04-25] MEDS: ALBUTEROL HALF STRENGTH 1.25 MG/3 ML VIAL.NEB NEB SCH ×4 (12:04→23:28)
[2020-04-25] MEDS: ACETYLCYSTEINE 10% SOLN 400 MG/4 ML VIAL NEB SCH ×3 (12:04→23:28)
[2020-04-25] MEDS: POTASSIUM CL. PREMIX PERIPHER. 50 ML IV SCH ×2 (13:11→14:18)
--- NOTE | 2020-04-25 15:25 | NUR ---
RN NOTE SPOKE WITH JUSTIN FROM LAB ABOUT PRELIMINARY LABS FOR BLOOD CULTURES. PER JUSTIN SHE WILL RELEASE PRELIMINARY FOR BLOOD CULTURES.
[2020-04-25] MEDS ORDERED: SILVER NITRATE APPLICATOR 1 EA BOX TP ONE (15:30)
[2020-04-25 16:00] VITALS: BP 154/96
--- NOTE | 2020-04-25 17:23 | NUR ---
DIE ATTACHER NOTE SPOKE WITH DELTA REGARDING SACRAL DEBRIDEMENT. PER DELTA HEMP FIBER TAKER OFF SHE WILL DO SACRAL DEBRIDEMENT TOMORROW.
[2020-04-25] MEDS: IV D5/0.45 NACL 1,000 ML IV PRN (18:09)
--- NOTE | 2020-04-25 18:58 | NUR ---
IMPROVEMENT RN NOTE PATIENT ON VENT TOLERATING VENT SETTINGS WELL. PATIENT IN BED RESTING COMFORTABLY. PATIENT IN NO ACUTE DISTRESS. NO SOB NOTED. PATIENT BREATHING IS EVEN AND UNLABORED. HOB IS ELEVATED. GTUBE PATENT AND INTACT, CLAMPED AT THIS TIME DUE TO RESIDUAL OF 80ML AND TRETIAK STATED TO HOLD FEEDING. PATIENT ON CARDIAC MONITORING READING SINUS RHYTHM HR 79. PATIENT WITH SOFT LEFT WRIST RESTRAINT, NOTED WITH GOOD CIRCULATION. PATIENT TURNED AND REPOSITIONED Q2H. PATIENT BED ALARM IS ON. SAFETY PRECAUTIONS IN PLACE. PATIENT BED IS LOCKED AND IN LOWEST POSITION. CALL LIGHT WITHIN REACH. WILL ENDORSE CARE TO PM SHIFT FOR KRISTINA.
[2020-04-25 20:00] VITALS: BP 150/94
--- NOTE | 2020-04-25 20:00 | NUR ---
RN NOTE RECEIVED PT IN BED RESTING COMFORTABLY, PT ANSWERS YES OR NO QUESTIONS WITH NODDING HEAD, PT IS ON VENT VIA TRACH SATING ABOVE 95%, PT HAS UNLABORED BREATHING. PT HAS G TUBE WITH RESIDUAL 40 ML, G TUBE FLUSHES WELL, AND IT IS CLAMPED. SAFETY MEASURES IN PLACE.
[2020-04-25] MEDS: DOXAZOSIN MESYLATE (1 MG) 1 MG TABLET PO SCH (22:43)
[2020-04-25 23:22] LABS: BILIRUBIN,URINE NEGATIVE (NEGATIVE); BLOOD, URINE MODERATE Ery/uL (NEGATIVE); COLOR,URINE YELLOW (YELLOW); LEUKOCYTE ESTERASE ,URINE LARGE (NEGATIVE); NITRITE, URINE NEGATIVE (NEGATIVE); PH,URINE 6.5 (5.0-8.0); PROTEIN,URINE 30 mg/dl (NEGATIVE); UGLUCOSE NEGATIVE (NEGATIVE); UROBILINOGEN,URINE 0.2 EU/dL (0.2)
[2020-04-25 23:35] LABS: BACTERIA,URINE 2+ /HPF (None Seen); CALCIUM OXALATE CRYSTALS,UR Many /HPF (None Seen); SQUAMOUS EPITHELIAL CELL,UR Few /HPF (None Seen); URIC ACID CRYSTALS,URINE Many /HPF (None Seen); URINE AMORPHOUS URATE Many /HPF (None Seen); WBC,URINE 81-100 /HPF (0-3)
[2020-04-26] VITALS: BP_SYST 102; BP_SYST 155; BP_DIAS 78; BP_DIAS 96
--- NOTE | 2020-04-26 | NUR ---
RECEIVED CRITICAL LAB VANCO TROUGH [address] MONTEIRO . PER DR MONTEIRO NO ORDER.,DOSE PER PHARMACY. CALLED [facility]IM[facility], AND RECEIVED AN ORDER FOR VANCO TROUGH SCHEDULED FOR 0800 O'CLOCK.
[2020-04-26 00:16] LABS: EOSINOPHIL,URINE Few
[2020-04-26] MEDS: ALBUTEROL HALF STRENGTH 1.25 MG/3 ML VIAL.NEB NEB SCH ×6 (03:30→23:48)
[2020-04-26] MEDS: IPRATROPIUM NEB FS 0.5 MG/2.5 ML AMPUL.NEB NEB SCH ×6 (03:30→23:48)
[2020-04-26 04:00] VITALS: BP 154/96
[2020-04-26] MEDS: ZOSYN IVPB 3.375 G in IV D5W 50ml IV SCH ×4 (04:46→21:34)
[2020-04-26] MEDS: CLONIDINE HCL 0.1 MG TABLET GT SCH ×3 (05:11→21:33)
[2020-04-26 05:31] LABS: URINE TOTAL PROTEIN 110.3 mg/dL (0-11.9)
--- NOTE | 2020-04-26 07:40 | NUR ---
RN NOTE PT REMAINED STABLE DURING MY SHIFT, REPORT GIVEN TO INCOMING NURSE FOR KRISTINA.
[2020-04-26 08:00] VITALS: BP 170/98
[2020-04-26] MEDS ORDERED: POTASSIUM CL. PREMIX PERIPHER. 50 ML IV SCH (08:00)
[2020-04-26] MEDS: ACETYLCYSTEINE 10% SOLN 400 MG/4 ML VIAL NEB SCH ×3 (08:20→23:48)
--- NOTE | 2020-04-26 08:35 | NUR ---
MS RN RECEIVED ON BED,OPENS EYES,NON VERBAL PATIENT,VENT DEPENDENT,NOT IN ANY FORM OF DISTRESS, RESPIRATIONS EVEN AND UNLABORED,NO SOB NOTED, NOTED O HAVE A GTUBE CLAMP AT THIS TIME, NIGHT HAD MORED THAN 150ML RESIDUAL,WILL MONITOR PATIENT.
[2020-04-26] MEDS: VANCOMYCIN 1 GM in IV D5W 250ml IV SCH (09:00)
--- NOTE | 2020-04-26 09:00 | NUR ---
MS RN G TUBE RESIDUAL IS 260ML, WILL HOLD FEEDING AT THIS TIME, DUE MEDS GIVEN,NOTED TO HAVE HIGFH B/P , WILL MONITOR PATIENT.
[2020-04-26] MEDS: ACIDOPHILUS/BULGARICUS 1 EACH TAB.CHEW GT SCH (10:10)
[2020-04-26] MEDS: METOCLOPRAMIDE HCL 10 MG/2 ML VIAL IV SCH ×3 (10:10→18:52)
[2020-04-26] MEDS: ZINC SULFATE 220 MG CAPSULE GT SCH (10:10)
[2020-04-26] MEDS: FERROUS SULFATE (325 MG) 325 MG/TAB TABLET GT SCH (10:10)
[2020-04-26] MEDS: LEVOTHYROXINE SODIUM 25 MCG TABLET GT SCH (10:10)
[2020-04-26] MEDS: FAMOTIDINE/PF INJ 20 MG/2 ML VIAL IV SCH ×2 (10:10→21:31)
[2020-04-26] MEDS: POLYETHYLENE GLYCOL 3350 17 GM POWD.PACK GT SCH (10:11)
[2020-04-26] MEDS: FINASTERIDE (5 MG) 5 MG TABLET GT SCH (10:11)
[2020-04-26] MEDS: METOPROLOL TARTRATE 50 MG TABLET GT SCH ×2 (10:12→18:52)
[2020-04-26] MEDS: AMLODIPINE BESYLATE 5 MG TABLET GT SCH ×2 (10:12→21:31)
[2020-04-26] MEDS: CLOTRIMAZOLE 1% 15 GM TUBE TP SCH ×2 (10:16→18:57)
--- NOTE | 2020-04-26 11:00 | NUR ---
MS INOCENCIO AM CARE DONE, CLEANED PATIENT, WILL MONITOR.
--- NOTE | 2020-04-26 12:00 | NUR ---
MS RN CHECKED RESIDUAL, 220ML AT THIS TIME, STILL HOLDING FEEDING, ALL NEEDS ATTENDED.
[2020-04-26 12:42] LABS: ALBUMIN 2.1 g/dL (3.4-5.0); BILIRUBIN,TOTAL 0.5 mg/dL (0.2-1.0); CALCIUM, SERUM 8.7 mg/dL (8.5-10.1); CREATININE 1.7 mg/dL (0.6-1.3); MAGNESIUM 1.9 mg/dL (1.8-2.4); PHOSPHORUS 4.5 mg/dL (2.5-4.9)
[2020-04-26 12:47] LABS: POTASSIUM 2.8 mmol/L (3.5-5.1)
[2020-04-26 13:02] LABS: BASOPHILS # (AUTO) 0.1 /CMM (0.0-0.2); BASOPHILS % (AUTO) 0.7 % (0.0-2.0); EOSINOPHILS % (AUTO) 16.4 % (0.0-6.0); HEMATOCRIT 32 % (39-51); HEMOGLOBIN 10.5 g/dL (13.5-17.5); LYMPHOCYTES # (AUTO) 1.8 /CMM (0.8-4.8); LYMPHOCYTES % (AUTO) 17.2 % (20.0-44.0); MEAN CORPUSCULAR HGB CONC 33 g/dl (31.0-36.0); MEAN CORPUSCULAR VOLUME 91 fL (80-96); MONOCYTES # (AUTO) 0.8 /CMM (0.1-1.30); NEUTROPHILS # (AUTO) 5.9 /CMM (1.8-8.9); NEUTROPHILS % (AUTO) 57.7 % (43.0-81.0); PLATELET COUNT (AUTO) 368 /CMM (150-450); RED BLOOD CELL COUNT(AUTO) 3.51 MIL/uL (4.5-6.0); WHITE BLOOD COUNT (AUTO) 10.2 K/uL (4.3-11.0)
[2020-04-26] MEDS ORDERED: CLONIDINE HCL 0.1 MG TABLET PO PRN (14:30)
[2020-04-26] MEDS: POTASSIUM CL. PREMIX PERIPHER. 50 ML IV SCH ×5 (14:31→18:04)
--- NOTE | 2020-04-26 15:00 | NUR ---
RN DEBRIDEMENT OF SACRAL WOUND DONE BY Tito DEVLIN, SPECIMEN SENT TO PATHOLOGY FOR STUDIES.
[2020-04-26 16:00] VITALS: BP 136/75
--- NOTE | 2020-04-26 18:00 | NUR ---
MS RN CHECKED RESIDUAL- 180ML AT THIS TIME,FEEDING HELD, WILL ENDORSE TO PM SHIFT FOR KRISTINA.
[2020-04-26] MEDS: NITROGLYCERIN PACKET 1 GM PACKET TOP SCH (18:53)
[2020-04-26] MEDS: DAKINS QUARTER STRENGTH (0.125%) 480 ML BOTTLE TOP SCH (18:54)
--- NOTE | 2020-04-26 19:30 | NUR ---
TELE/RN OPENING NOTES RECEIVED PATIENT IN BED RESTING. PATIENT IS ABLE TO OPEN EYES AND WITH EYES ANSWER YES NO QUESTIONS. PATIENT VENT DEPENDENT, SETTING SHILEY #7, FIO2 45 PEEP 5 AC 18 TV 600. TELE READING SR 70. PATIENT HAS MARIN CATH IN PLACE DRAINING WELL. PATIENT HAS JUNIE MIDLINE INTACT. SAFETY MEASURES ARE IN PLACE, BED LOCKED AND PLACED IN THE LOW POSITION, CALL LIGHT WITH IN REACH. WILL CONTINUE TO MONITOR.
[2020-04-26 20:00] VITALS: BP 141/96
--- NOTE | 2020-04-26 21:00 | NUR ---
TELE/RN NOTES RESIDUAL 175ML, FEEDING WILL BE HELD AT THIS TIME.
[2020-04-26] MEDS: DOXAZOSIN MESYLATE (1 MG) 1 MG TABLET PO SCH (21:33)
[2020-04-27] VITALS: BP 133/88
[2020-04-27] MEDS: NITROGLYCERIN PACKET 1 GM PACKET TOP SCH ×4 (00:39→17:52)
[2020-04-27] MEDS: IPRATROPIUM NEB FS 0.5 MG/2.5 ML AMPUL.NEB NEB SCH ×6 (03:43→23:30)
[2020-04-27] MEDS: ALBUTEROL HALF STRENGTH 1.25 MG/3 ML VIAL.NEB NEB SCH ×6 (03:43→23:30)
[2020-04-27 04:00] VITALS: BP 132/86
[2020-04-27] MEDS: ZOSYN IVPB 3.375 G in IV D5W 50ml IV SCH ×2 (04:16→11:24)
[2020-04-27] MEDS: CLONIDINE HCL 0.1 MG TABLET GT SCH ×3 (04:48→21:57)
--- NOTE | 2020-04-27 05:00 | NUR ---
TELE/RN NOTES RESIDUAL 180ML, FEEDING WILL BE HELD AT THIS TIME.
[2020-04-27] MEDS: IV D5/0.45 NACL 1,000 ML IV PRN (06:09)
--- NOTE | 2020-04-27 06:35 | NUR ---
TELE/RN CLOSING NOTES PATIENT IN BED RESTING. PATIENT IS ABLE TO OPEN EYES AND WITH EYES ANSWER YES NO QUESTIONS. PATIENT VENT DEPENDENT, SETTING SHILEY #7, FIO2 45 PEEP 5 AC 18 TV 600. TELE READING SR 75-80'S. PATIENT HAS MARIN CATH IN PLACE DRAINING WELL OUTPUT 600CC. PATIENT HAS JUNIE MIDLINE INTACT RUNNING D5 1/5 NS AT 75CC HR. ALL NEEDS HAVE BEEN MET. SAFETY MEASURES ARE IN PLACE, BED LOCKED AND PLACED IN THE LOW POSITION, CALL LIGHT WITH IN REACH. WILL ENDORSE CARE TO DAY SHIFT.
[2020-04-27] MEDS ORDERED: JEVITY 1.2 CAL 1,000 ML BOTTLE GT PRN (07:00)
--- NOTE | 2020-04-27 07:30 | NUR ---
RUG REPAIRER NOTE PATIENT ON VENT TOLERATING VENT SETTINGS WELL. PATIENT IN BED RESTING COMFORTABLY. PATIENT IN NO ACUTE DISTRESS. NO SOB NOTED. PATIENT BREATHING IS EVEN AND UNLABORED. HOB IS ELEVATED. GTUBE PATENT AND INTACT. PER VASCULAR RADIOLOGIST GEOVANY RESIDUAL WAS 180ML. HOLD TUBE FEEDING AT THIS TIME UNTIL BELOW 150ML RESIDUAL. PATIENT ON CARDIAC MONITORING READING SINUS RHYTHM HR 69. PATIENT BED ALARM IS ON. SAFETY PRECAUTIONS IN PLACE. PATIENT BED IS LOCKED AND IN LOWEST POSITION. CALL LIGHT WITHIN REACH. WILL CONTINUE TO MONITOR.
[2020-04-27] MEDS: ACETYLCYSTEINE 10% SOLN 400 MG/4 ML VIAL NEB SCH ×3 (07:47→23:31)
[2020-04-27 08:00] VITALS: BP 136/75
[2020-04-27 08:06] LABS: PTH, INTACT 9 pg/mL (15-65)
[2020-04-27] MEDS: METOCLOPRAMIDE HCL 10 MG/2 ML VIAL IV SCH ×3 (08:53→17:51)
[2020-04-27] MEDS: ACIDOPHILUS/BULGARICUS 1 EACH TAB.CHEW GT SCH (08:53)
[2020-04-27] MEDS: ZINC SULFATE 220 MG CAPSULE GT SCH (08:53)
[2020-04-27] MEDS: POLYETHYLENE GLYCOL 3350 17 GM POWD.PACK GT SCH (08:53)
[2020-04-27] MEDS: FAMOTIDINE/PF INJ 20 MG/2 ML VIAL IV SCH ×2 (08:53→21:55)
[2020-04-27] MEDS: METOPROLOL TARTRATE 50 MG TABLET GT SCH ×2 (08:54→17:51)
[2020-04-27] MEDS: LEVOTHYROXINE SODIUM 25 MCG TABLET GT SCH (08:54)
[2020-04-27] MEDS: FERROUS SULFATE (325 MG) 325 MG/TAB TABLET GT SCH (08:54)
[2020-04-27] MEDS: FINASTERIDE (5 MG) 5 MG TABLET GT SCH (08:54)
[2020-04-27] MEDS: AMLODIPINE BESYLATE 5 MG TABLET GT SCH ×2 (08:54→21:57)
[2020-04-27] MEDS: CLOTRIMAZOLE 1% 15 GM TUBE TP SCH ×2 (08:56→18:01)
[2020-04-27] MEDS ORDERED: VANCOMYCIN 1 GM in IV D5W 250ml IV SCH (09:00)
[2020-04-27] MEDS: DAKINS QUARTER STRENGTH (0.125%) 480 ML BOTTLE TOP SCH (09:42)
--- NOTE | 2020-04-27 09:48 | NUR ---
PSYCHOLOGIST CHIEF NOTE INFORMED PHARMACY ADALGISA PATIENT GIVEN VANCOMYCIN IV 0900. PER ADALGISA STOP CURRENT INFUSION AND DUE TO ELEVATED TROUGH YESTERDAY, WAIT FOR ANOTHER TROUGH LEVEL TO BE ORDERED THIS AFTERNOON OR EVENING, PHARMACY TO DOSE. VANCO IV STOPPED. WILL WAIT FOR TROUGH LEVEL.
[2020-04-27] MEDS: POTASSIUM CL. PREMIX PERIPHER. 50 ML IV SCH ×4 (09:50→15:27)
[2020-04-27 10:11] LABS: CALCIUM, SERUM 8.8 mg/dL (8.5-10.1); CREATININE 1.7 mg/dL (0.6-1.3); POTASSIUM 3.4 mmol/L (3.5-5.1)
[2020-04-27 15:59] LABS: BASOPHILS % (AUTO) 0.5 % (0.0-2.0); EOSINOPHILS % (AUTO) 15.3 % (0.0-6.0); HEMATOCRIT 30 % (39-51); HEMOGLOBIN 9.8 g/dL (13.5-17.5); LYMPHOCYTES % (AUTO) 18.6 % (20.0-44.0); MEAN CORPUSCULAR HGB CONC 33 g/dl (31.0-36.0); MEAN CORPUSCULAR VOLUME 90 fL (80-96); MONOCYTES # (AUTO) 0.8 /CMM (0.1-1.30); MONOCYTES % (AUTO) 7.7 % (2.0-12.0); NEUTROPHILS # (AUTO) 6.2 /CMM (1.8-8.9); NEUTROPHILS % (AUTO) 57.9 % (43.0-81.0); PLATELET COUNT (AUTO) 354 /CMM (150-450); RED BLOOD CELL COUNT(AUTO) 3.35 MIL/uL (4.5-6.0); WHITE BLOOD COUNT (AUTO) 10.6 K/uL (4.3-11.0)
[2020-04-27 16:00] VITALS: BP 149/77
[2020-04-27] MEDS: CEFEPIME 2 GM in IV D5W 100 ML IV SCH (17:51)
--- NOTE | 2020-04-27 19:27 | NUR ---
MUD JACK NOZZLE WORKER NOTE PATIENT ON VENT TOLERATING VENT SETTINGS WELL. PATIENT IN BED RESTING COMFORTABLY. PATIENT IN NO ACUTE DISTRESS. NO SOB NOTED. PATIENT BREATHING IS EVEN AND UNLABORED. HOB IS ELEVATED. GTUBE PATENT AND INTACT. GTUBE RESIDUAL WAS 0ML. INFORMED MIKALA COLON AND KELSEY ALVAREZ TO START TUBE FEEDING. ENDORSED TO GEOVANY RN TO START GTUBE FEEDING. PATIENT ON CARDIAC MONITORING READING SINUS RHYTHM HR 83. PATIENT WITH SOFT LEFT WRIST RESTRAINT, NOTED WITH GOOD CIRCULATION. PATIENT TURNED AND REPOSITIONED Q2H. PATIENT BED ALARM IS ON. SAFETY PRECAUTIONS IN PLACE. PATIENT BED IS LOCKED AND IN LOWEST POSITION. CALL LIGHT WITHIN REACH. WILL ENDORSE CARE TO PM SHIFT FOR KRISTINA.
--- NOTE | 2020-04-27 19:30 | NUR ---
WILL CONTINUE TO MONITOR PATIENT DURING SHIFT.
--- NOTE | 2020-04-27 19:30 | NUR ---
TELE/RN OPENING NOTES RECEIVED PATIENT IN BED RESTING. PATIENT IS ABLE TO OPEN EYES AND WITH EYES ANSWER YES NO QUESTIONS. PATIENT VENT DEPENDENT, SETTING SHILEY #7, FIO2 45 PEEP 5 AC 18 TV 600. TELE READING SR. PATIENT HAS MARIN CATH IN PLACE DRAINING WELL. PATIENT HAS JUNIE MIDLINE INTACT RUNNING D5 1/5 NS AT 75CC HR. GTUBE IN PLACE RESIDUAL NOTED AT 10CC. RIGHT SOFT WRIST RESTRAINT IN PLACE, HAND CIRCULATION IS GOOD. SAFETY MEASURES ARE IN PLACE, BED LOCKED AND PLACED IN THE LOW POSITION, CALL LIGHT WITH IN REACH. WILL ENDORSE CARE TO DAY SHIFT.
[2020-04-27 20:00] VITALS: BP 137/85
[2020-04-27] MEDS: DOXAZOSIN MESYLATE (1 MG) 1 MG TABLET PO SCH (21:57)
[2020-04-28] VITALS: BP 169/110
[2020-04-28] MEDS: NITROGLYCERIN PACKET 1 GM PACKET TOP SCH ×4 (00:26→17:03)
[2020-04-28 04:00] VITALS: BP 147/101
[2020-04-28] MEDS: IPRATROPIUM NEB FS 0.5 MG/2.5 ML AMPUL.NEB NEB SCH ×5 (04:00→19:30)
[2020-04-28] MEDS: ALBUTEROL HALF STRENGTH 1.25 MG/3 ML VIAL.NEB NEB SCH ×5 (04:01→19:30)
[2020-04-28] MEDS: CLONIDINE HCL 0.1 MG TABLET GT SCH ×2 (04:30→12:04)
[2020-04-28] MEDS: CEFEPIME 2 GM in IV D5W 100 ML IV SCH ×2 (05:21→17:03)
--- NOTE | 2020-04-28 06:20 | NUR ---
TELE/RN CLOSING NOTES PATIENT IN BED RESTING. PATIENT IS ABLE TO OPEN EYES AND WITH EYES ANSWER YES NO QUESTIONS. PATIENT VENT DEPENDENT, SETTING SHILEY #7, FIO2 45 PEEP 5 AC 18 TV 600. TELE READING SR. PATIENT HAS MARIN CATH IN PLACE DRAINING WELL. PATIENT HAS JUNIE MIDLINE INTACT RUNNING D5 1/5 NS AT 75CC HR. G-TUBE IN PLACE RESIDUAL NOTED 15CC. RIGHT SOFT WRIST RESTRAINT IN PLACE, HAND CIRCULATION IS GOOD. ALL NEEDS HAVE BEEN MET DURING SHIFT. SAFETY MEASURES ARE IN PLACE, BED LOCKED AND PLACED IN THE LOW POSITION, CALL LIGHT WITH IN REACH. WILL ENDORSE CARE TO DAY SHIFT NURSE.
[2020-04-28 07:10] LABS: *SPE A/G RATIO 0.7 (0.7-1.7); *SPE ALBUMIN 2.6 g/dL (2.9-4.4); *SPE ALPHA-1-GLOBULIN 0.2 g/dL (0.0-0.4); *SPE ALPHA-2-GLOBULIN 0.8 g/dL (0.4-1.0); *SPE GLOBULIN, TOTAL 3.9 g/dL (2.2-3.9); *SPE M-SPIKE Not Observed g/dL (Not Observed); *SPEGAMMA GLOBULIN 1.8 g/dL (0.4-1.8)
[2020-04-28 07:18] LABS: BASOPHILS % (AUTO) 0.2 % (0.0-2.0); EOSINOPHILS % (AUTO) 9.4 % (0.0-6.0); HEMATOCRIT 30 % (39-51); HEMOGLOBIN 9.8 g/dL (13.5-17.5); LYMPHOCYTES # (AUTO) 1.2 /CMM (0.8-4.8); LYMPHOCYTES % (AUTO) 10.7 % (20.0-44.0); MEAN CORPUSCULAR HGB CONC 33 g/dl (31.0-36.0); MEAN CORPUSCULAR VOLUME 92 fL (80-96); MONOCYTES # (AUTO) 0.6 /CMM (0.1-1.30); NEUTROPHILS # (AUTO) 8.7 /CMM (1.8-8.9); NEUTROPHILS % (AUTO) 74.7 % (43.0-81.0); PLATELET COUNT (AUTO) 307 /CMM (150-450); RED BLOOD CELL COUNT(AUTO) 3.25 MIL/uL (4.5-6.0); WHITE BLOOD COUNT (AUTO) 11.6 K/uL (4.3-11.0)
[2020-04-28] MEDS ORDERED: POTASSIUM CHLORIDE 20 MEQ POWDER PACKET GT ONE (07:30)
[2020-04-28 07:55] LABS: CALCIUM, SERUM 8.3 mg/dL (8.5-10.1); CREATININE 1.6 mg/dL (0.6-1.3); POTASSIUM 3.1 mmol/L (3.5-5.1)
[2020-04-28] MEDS: ACETYLCYSTEINE 10% SOLN 400 MG/4 ML VIAL NEB SCH ×2 (07:57→15:02)
--- NOTE | 2020-04-28 08:00 | NUR ---
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 A/O X1 NON VERBAL. PATIENT IS ON MECHANICAL VENTILATOR, TOLERATING WELL. JUNIE MIDLINE INTACT AND PATENT. PEG TUBE IN PLACE RECEIVING FEEDING JEVITY 1.2 DEBBIE @ 40ML/HR, TOLERATING WELL. RIGHT WRIST RESTRAINT IN PLACE. MARIN CATHETER INTACT NO SIGN OF INFECTION OR COMPLICATIONS NOTED. SAFETY MEASURES IN PLACE WILL CONTINUE TO MONITOR AND ENSURE SAFETY.
[2020-04-28 08:38] VITALS: BP 177/98
[2020-04-28] MEDS: FERROUS SULFATE (325 MG) 325 MG/TAB TABLET GT SCH (09:34)
[2020-04-28] MEDS: POLYETHYLENE GLYCOL 3350 17 GM POWD.PACK GT SCH (09:35)
[2020-04-28] MEDS: LEVOTHYROXINE SODIUM 25 MCG TABLET GT SCH (09:35)
[2020-04-28] MEDS: ZINC SULFATE 220 MG CAPSULE GT SCH (09:35)
[2020-04-28] MEDS: ACIDOPHILUS/BULGARICUS 1 EACH TAB.CHEW GT SCH (09:35)
[2020-04-28] MEDS: FINASTERIDE (5 MG) 5 MG TABLET GT SCH (09:35)
[2020-04-28] MEDS: METOPROLOL TARTRATE 50 MG TABLET GT SCH ×2 (09:36→16:15)
[2020-04-28] MEDS: METOCLOPRAMIDE HCL 10 MG/2 ML VIAL IV SCH ×3 (09:37→16:15)
[2020-04-28] MEDS: FAMOTIDINE/PF INJ 20 MG/2 ML VIAL IV SCH (09:37)
[2020-04-28] MEDS: AMLODIPINE BESYLATE 5 MG TABLET GT SCH (09:56)
[2020-04-28] MEDS: CLOTRIMAZOLE 1% 15 GM TUBE TP SCH ×2 (09:57→16:17)
[2020-04-28] MEDS: DAKINS QUARTER STRENGTH (0.125%) 480 ML BOTTLE TOP SCH (09:57)
[2020-04-28] MEDS ORDERED: IPRA0.2S9 NEB (11:38)
[2020-04-28] MEDS ORDERED: CEFE2PIG2 IV (11:38)
[2020-04-28] MEDS ORDERED: VANC1FRO2 IV (11:38)
[2020-04-28] MEDS ORDERED: ALBU1.25 NEB (11:38)
[2020-04-28] MEDS: IV D5/0.45 NACL 1,000 ML IV PRN (11:46)
[2020-04-28] MEDS ORDERED: INFLUENZA VACCINE 2020-21 0.5 ML DISP.SYRIN IM ONE (15:00)
[2020-04-28 16:11] VITALS: BP 156/102
--- NOTE | 2020-04-28 17:00 | NUR ---
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 PATIENT IN STABLE CONDITION. REPORT WAS GIVEN TO CHARGE NURSE AND RT AT SNF. ALL DISCHARGE/EXIT CARE WAS GIVEN/PERFORMED. REMOVED PATIENT/ NAME BAND. JUNIE MIDLINE LEFT FOR FACILITY TO USE FOR IV ANTIBIOTICS. REPORT WAS GIVEN TO EMT. EMT ARE AWAITING FOR MORE HELP PATIENT COULD NOT BE TRANSFERRED TO STANDARD GURNEY.
[2020-04-28 17:03] VITALS: BP 156/102
--- NOTE | 2020-04-28 17:55 | NUR ---
MS/RN DISCHARGED PATIENT LEFT UNIT FLOOR WITH college intern IN STABLE CONDITION.
[2020-04-28] MEDS ORDERED: VANCOMYCIN 1 GM in IV D5W 250ml IV SCH (21:00)
== END 2020-04-28 19:55 | DRG 130 ==
LOC: ER 19:00 → ICU 21:31 → TELE 04-22 20:35
PROVIDERS: ADMIT Student in an Organized Health Care Education/Training Program; ATTEND Nurse Practitioner Acute Care
PROC: 5A09357 Assistance with Respiratory Ventilation, Less than 24 Consecutive Hours, Continuous Positive Airway Pressure (ICD-10-PCS; 2020-04-21)
PROC: 5A1955Z Respiratory Ventilation, Greater than 96 Consecutive Hours (ICD-10-PCS; principal; 2020-04-22)
PROC: 05HB33Z Insertion of Infusion Device into Right Basilic Vein, Percutaneous Approach (ICD-10-PCS; 2020-04-22)
PROC: 05HD33Z Insertion of Infusion Device into Right Cephalic Vein, Percutaneous Approach (ICD-10-PCS; 2020-04-23)
PROC: 0JB70ZZ Excision of Back Subcutaneous Tissue and Fascia, Open Approach (ICD-10-PCS; 2020-04-26)
DX: T17.890A Other foreign object in other parts of respiratory tract causing asphyxiation, initial encounter (principal); A41.9 Sepsis, unspecified organism; J96.21 Acute and chronic respiratory failure with hypoxia; G93.41 Metabolic encephalopathy; R13.10 Dysphagia, unspecified; I27.20 Pulmonary hypertension, unspecified; E44.0 Moderate protein-calorie malnutrition; Z93.1 Gastrostomy status; Z93.0 Tracheostomy status; Z99.11 Dependence on respirator [ventilator] status; Z86.73 Personal history of transient ischemic attack (TIA), and cerebral infarction without residual deficits; Z86.19 Personal history of other infectious and parasitic diseases; Z86.14 Personal history of Methicillin resistant Staphylococcus aureus infection; Z90.5 Acquired absence of kidney; Z87.440 Personal history of urinary (tract) infections; Z88.8 Allergy status to other drugs, medicaments and biological substances; L89.153 Pressure ulcer of sacral region, stage 3; J18.9 Pneumonia, unspecified organism; D63.8 Anemia in other chronic diseases classified elsewhere; E87.6 Hypokalemia; J98.11 Atelectasis; I10 Essential (primary) hypertension; E78.5 Hyperlipidemia, unspecified; X58.XXXA Exposure to other specified factors, initial encounter; Y92.099 Unspecified place in other non-institutional residence as the place of occurrence of the external cause; J98.09 Other diseases of bronchus, not elsewhere classified; E66.2 Morbid (severe) obesity with alveolar hypoventilation; Z85.528 Personal history of other malignant neoplasm of kidney; T50.8X5A Adverse effect of diagnostic agents, initial encounter; N17.0 Acute kidney failure with tubular necrosis; Z68.42 Body mass index [BMI] 45.0-49.9, adult
CPT/HCPCS: 31720; 36410; 36415; 36600; 71045-TC; 76770-TC; 80048-TC; 80053-TC; 80061-TC; 80076-TC; 80202-TC; 81001; 82550-TC; 82570-TC; 82962-TC; 83605-TC; 83735-TC; 83880; 83970; 84100-TC; 84155; 84155-TC; 84165; 84300-TC; 84443-TC; 84484-TC; 85025-TC; 85730-TC; 87040-TC; 87070-TC; 87081-TC; 87086-TC; 88304-TC; 88312-TC; 94002-TC; 94003-TC; 94760-TC; 94762-TC; 94799-TC; A4217; A4623; A6253; A6403; A7526; C9803; G0378; J0692; J2405; J2543; J2765; J3370; J3480; J3490; J7030; J7042; J7050; J7060; Q2036; Q9967

== ENCOUNTER 2020-05-26 17:29 | Inpatient (IN) | payer MEDICAID ==
[~2020-05-26] VITALS: Ht 175.3 cm; Wt 134.4 kg
[2020-05-26] MEDS: AMLODIPINE BESYLATE 5 MG TABLET GT SCH (03:00)
[~2020-05-26 17:29] MED LIST changes: +ACID1TAB12 GT; +ALBU1.25 NEB; +AMLO-212 GT; +ASCO-352 GT; +BUME1TAB8 PO; +CEFE2PIG2 IV; +CLON0.3T GT; +DOXA2TAB2 GT; +ENOX30DI SQ; +FERR325T23 GT; +FINA5TAB4 GT; +HYDR100T27 GT; +IPRA0.2S9 NEB; +LEVO25TA7 GT; +LISI-603 GT; +METO50TA16 GT; +MORP15TA GT; +MULT-754 GT; +NYST15PO4 TP; +POLY17PO4 GT; +VANC1FRO2 IV; +ZINC1CAP2 GT; -ZOSYN IVPB 3.375 G in IV D5W 50ml IV ONE
--- NOTE | 2020-05-26 18:11 | NUR ---
The patient was brought by EMS to the emergency department, the snf facility called 911 due to shortness of breath
--- NOTE | 2020-05-26 18:11 | NUR ---
Ventilator dependent respiratory function; placed on the vent, RT notified
--- NOTE | 2020-05-26 18:12 | NUR ---
Hep-Lock started; right hand PIV #24; good blood return
--- NOTE | 2020-05-26 18:12 | NUR ---
Call the lab to draw blood
[2020-05-26] MEDS ORDERED: PIPERACILLIN /TAZOBACTAM 3.375 G in IV D5W 50 ML IV ONE (18:30)
[2020-05-26] MEDS ORDERED: VANCOMYCIN HCL 1 GM in IV D5W 260 ML IV ONE (18:30)
[2020-05-26 19:26] LABS: CALCIUM, SERUM 9.3 mg/dL (8.5-10.1); CARBON DIOXIDE 28 mmol/L (21-32); CHLORIDE 101 mmol/L (98-107); CREATININE 1.3 mg/dL (0.6-1.3); GLUCOSE 98 mg/dL (74-106); POTASSIUM 3.9 mmol/L (3.5-5.1); SODIUM SERUM 136 mmol/L (136-145); UREA NITROGEN, BLOOD 14 mg/dL (7-18)
[2020-05-26 19:38] LABS: B-TYPE NATRIURETIC PEPTIDE 126 PG/ML (0-125)
[2020-05-26 19:42] LABS: BILIRUBIN,URINE Negative (NEGATIVE); COLOR,URINE YELLOW (YELLOW); LEUKOCYTE ESTERASE ,URINE Moderate (NEGATIVE); NITRITE, URINE Negative (NEGATIVE); PROTEIN,URINE 30 mg/dl (NEGATIVE); UGLUCOSE Negative (NEGATIVE); UROBILINOGEN,URINE 0.2 EU/dL (0.2)
[2020-05-26 19:44] LABS: BACTERIA,URINE Few /HPF (None Seen); SQUAMOUS EPITHELIAL CELL,UR Rare /HPF (None Seen); WBC,URINE 21-50 /HPF (0-3); YEAST,URINE Moderate /HPF (None Seen)
--- NOTE | 2020-05-26 20:10 | NUR ---
PT VENT DEP AC 16, TV 550, 02 50, PEEP OF 5
--- NOTE | 2020-05-26 20:17 | NUR ---
PT NOTED TACHY AT 140'S. MD AND RT AT BEDSIDE.
[2020-05-26] MEDS ORDERED: ONDANSETRON HCL/PF 4 MG/2 ML VIAL IVP PRN (21:00)
[2020-05-26] MEDS ORDERED: IV NS 0.9% 2,000 ML IV ONE (21:00)
[2020-05-26] MEDS ORDERED: ENOXAPARIN SODIUM 30 MG/0.3 ML DISP.SYRIN SQ SCH (21:00)
[2020-05-26] MEDS ORDERED: Z GUARD REMEDY 2 OZ OINT TP PRN (21:00)
[2020-05-26] MEDS ORDERED: ACETAMINOPHEN 325 MG TABLET PO PRN (21:00)
[2020-05-26] MEDS ORDERED: ZOLPIDEM TARTRATE 5 MG TABLET PO PRN (21:00)
--- NOTE | 2020-05-26 21:13 | NUR ---
REC'D NEG COVID RESULTS. AWARE
--- NOTE | 2020-05-26 21:38 | NUR ---
PAINTER HELPER SPRAY AT BEDSIDE, UNABLE TO DRAW.
[2020-05-26 22:35] LABS: BASOPHILS % (AUTO) 0.1 % (0.0-2.0); EOSINOPHILS % (AUTO) 6.9 % (0.0-6.0); HEMATOCRIT 32 % (39-51); HEMOGLOBIN 10.7 g/dL (13.5-17.5); LYMPHOCYTES # (AUTO) 1.4 /CMM (0.8-4.8); LYMPHOCYTES % (AUTO) 7.8 % (20.0-44.0); MEAN CORPUSCULAR HGB CONC 33 g/dl (31.0-36.0); MEAN CORPUSCULAR VOLUME 90 fL (80-96); MONOCYTES # (AUTO) 0.8 /CMM (0.1-1.30); MONOCYTES % (AUTO) 4.7 % (2.0-12.0); NEUTROPHILS # (AUTO) 14.7 /CMM (1.8-8.9); NEUTROPHILS % (AUTO) 80.5 % (43.0-81.0); PLATELET COUNT (AUTO) 497 /CMM (150-450); RED BLOOD CELL COUNT(AUTO) 3.59 MIL/uL (4.5-6.0); WHITE BLOOD COUNT (AUTO) 18.2 K/uL (4.3-11.0)
[2020-05-26] MEDS: IPRATROPIUM NEB FS 0.5 MG/2.5 ML AMPUL.NEB NEB SCH (23:30)
--- NOTE | 2020-05-26 23:34 | NUR ---
RT UNABLE TO GIVE BREATHING TREATMENT AT THIS TIME.
--- NOTE | 2020-05-27 00:13 | NUR ---
MEDICATIONS UNVERIFIED, UNABLE TO GIVE MEDS.
[2020-05-27] MEDS: ZOSYN IVPB 3.375 G in IV D5W 50ml IV SCH ×4 (01:00→22:35)
[2020-05-27] MEDS ORDERED: ALBUTEROL FS 2.5 MG/3 ML VIAL.NEB NEB PRN (01:00)
[2020-05-27] MEDS ORDERED: ZOSYN IVPB 3.375 G in IV D5W 50ml IV ONE (01:00)
--- NOTE | 2020-05-27 02:16 | NUR ---
UNABLE TO GIVE MEDS DUE TO NO IV ACCESS.
--- NOTE | 2020-05-27 02:24 | NUR ---
AWITING FOR MID LINE PLACEMENT. UNABLE TO GIVE FLUIDS.
--- NOTE | 2020-05-27 02:34 | NUR ---
DRISS SOMMERS NP SPEAKING WITH PT'S REGARDING PLAN OF CARE
[2020-05-27] MEDS ORDERED: METOPROLOL TARTRATE 50 MG TABLET ONE ×3 (02:48→18:11)
[2020-05-27] MEDS ORDERED: AMLODIPINE BESYLATE 5 MG TABLET ONE ×2 (02:48→09:02)
[2020-05-27] MEDS ORDERED: BUMETANIDE (1 MG) 1 MG TABLET ONE ×2 (02:48→09:04)
[2020-05-27] MEDS ORDERED: CLONIDINE HCL 0.1 MG TABLET ONE ×4 (02:48→21:32)
[2020-05-27] MEDS ORDERED: hydrALAZINE HCL 50 MG TABLET ONE (02:49)
[2020-05-27] MEDS ORDERED: LISINOPRIL (20MG) 20 MG TABLET ONE (02:49)
[2020-05-27] MEDS: METOPROLOL TARTRATE 50 MG TABLET GT SCH ×3 (03:00→18:15)
[2020-05-27] MEDS: hydrALAZINE HCL 25 MG TABLET GT SCH ×4 (03:00→21:56)
[2020-05-27] MEDS: LISINOPRIL (20MG) 20 MG TABLET GT SCH ×3 (03:03→21:00)
[2020-05-27] MEDS: BUMETANIDE (1 MG) 1 MG TABLET PO SCH ×2 (03:04→09:00)
[2020-05-27] MEDS: CLONIDINE HCL 0.1 MG TABLET PO SCH ×4 (03:04→21:00)
--- NOTE | 2020-05-27 03:05 | NUR ---
Nav glover in [facility] - 05/27/20 at 0305 by MIL bp m
--- NOTE | 2020-05-27 03:06 | NUR ---
DRISS SOMMERS MADE AWARE THAT BP MEDS GIVEN AT 0300.
[2020-05-27] MEDS ORDERED: ENOXAPARIN SODIUM 30 MG/0.3 ML DISP.SYRIN ONE (03:21)
[2020-05-27] MEDS ORDERED: IPRATROPIUM NEB FS 0.5 MG/2.5 ML AMPUL.NEB ONE ×5 (03:24→21:51)
--- NOTE | 2020-05-27 03:24 | NUR ---
SAMUEL FAULKNER. WILL SPEAK TO NURSING SOCIOLOGY ADJUNCT INSTRUCTOR.
[2020-05-27] MEDS: IPRATROPIUM NEB FS 0.5 MG/2.5 ML AMPUL.NEB NEB SCH ×5 (03:28→19:30)
[2020-05-27] MEDS ORDERED: PIPERACILLIN /TAZOBACTAM 3.375 G VIAL IV ONE (03:41)
--- NOTE | 2020-05-27 03:45 | NUR ---
22G IV INITIATED BY MERI PAINTER. WILL ADMINISTER FLUIDS THROUGH IV.
--- NOTE | 2020-05-27 05:09 | NUR ---
PT REMAINS IN BED, AWAITING FOR DIFLUCAN IV.
[2020-05-27] MEDS ORDERED: FLUCONAZOLE IN NS 100 ML IV ONE (05:27)
[2020-05-27] MEDS: FLUCONAZOLE IN NS 100 MG in PREMIX 1 EA IV SCH ×4 (05:45→21:00)
[2020-05-27 06:23] LABS: D-DIMER 0.47 mg/L(FEU (0.17-0.50)
[2020-05-27] MEDS: LEVOTHYROXINE SODIUM 25 MCG TABLET GT SCH (07:00)
--- NOTE | 2020-05-27 07:23 | NUR ---
REPORT GIVEN TO PABLO PAINTER FOR KRISTINA
[2020-05-27] MEDS ORDERED: ZOSYN IVPB 3.375 G in IV D5W 50ml IV SCH (07:30)
[2020-05-27 08:26] LABS: CALCIUM, SERUM 8.5 mg/dL (8.5-10.1); CREATININE 1.3 mg/dL (0.6-1.3); MAGNESIUM 2.2 mg/dL (1.8-2.4); PHOSPHORUS 4.9 mg/dL (2.5-4.9); POTASSIUM 4.5 mmol/L (3.5-5.1)
[2020-05-27] MEDS: ZINC SULFATE 220 MG CAPSULE GT SCH (09:00)
[2020-05-27] MEDS ORDERED: MULTIVITAMIN LIQ 5 ML UDC GT SCH (09:00)
[2020-05-27] MEDS: ACIDOPHILUS/BULGARICUS 1 EACH TAB.CHEW GT SCH (09:00)
[2020-05-27] MEDS: DOXAZOSIN MESYLATE (1 MG) 1 MG TABLET PO SCH (09:00)
[2020-05-27] MEDS: ASCORBIC ACID 500 MG TABLET GT SCH ×2 (09:00→18:22)
[2020-05-27] MEDS: FINASTERIDE (5 MG) 5 MG TABLET GT SCH (09:00)
[2020-05-27] MEDS: MULTIVITAMINS,THERAGRAN 1 UDTAB TABLET GT SCH (09:00)
[2020-05-27] MEDS: FERROUS SULFATE (325 MG) 325 MG/TAB TABLET GT SCH (09:00)
[2020-05-27] MEDS: AMLODIPINE BESYLATE 5 MG TABLET GT SCH ×2 (09:00→21:57)
[2020-05-27] MEDS ORDERED: ENOXAPARIN SODIUM 40 MG/0.4 ML DISP.SYRIN SQ SCH (09:00)
--- NOTE | 2020-05-27 09:39 | NUR ---
WAITING FOR MANY AM MEDS FROM PHARMACY. PHARMACY AWARE.
[2020-05-27] MEDS: POLYETHYLENE GLYCOL 3350 17 GM POWD.PACK GT SCH (10:03)
[2020-05-27] MEDS: VANCOMYCIN 1 GM in IV D5W 250ml IV SCH ×3 (10:20→23:53)
[2020-05-27 11:52] LABS: BASOPHILS # (AUTO) 0.1 /CMM (0.0-0.2); BASOPHILS % (AUTO) 0.7 % (0.0-2.0); HEMATOCRIT 28 % (39-51); HEMOGLOBIN 8.9 g/dL (13.5-17.5); LYMPHOCYTES # (AUTO) 1.6 /CMM (0.8-4.8); LYMPHOCYTES % (AUTO) 12.7 % (20.0-44.0); MEAN CORPUSCULAR HGB CONC 32 g/dl (31.0-36.0); MEAN CORPUSCULAR VOLUME 92 fL (80-96); MONOCYTES # (AUTO) 0.8 /CMM (0.1-1.30); MONOCYTES % (AUTO) 6.7 % (2.0-12.0); NEUTROPHILS # (AUTO) 8.9 /CMM (1.8-8.9); NEUTROPHILS % (AUTO) 70.9 % (43.0-81.0); PLATELET COUNT (AUTO) 390 /CMM (150-450); RED BLOOD CELL COUNT(AUTO) 2.99 MIL/uL (4.5-6.0); WHITE BLOOD COUNT (AUTO) 12.6 K/uL (4.3-11.0)
--- NOTE | 2020-05-27 14:01 | NUR ---
RESTING QUIETLY, NAD NOTED, PRE-HOSPITAL MARIN DRAINING TO GRAVITY. TURNED/REPOSITIONED Q2H
[2020-05-27] MEDS ORDERED: ENOXAPARIN SODIUM 40 MG/0.4 ML DISP.SYRIN SQ ONE (21:34)
[2020-05-27] MEDS: ENOXAPARIN SODIUM 40 MG/0.4 ML DISP.SYRIN SQ SCH (21:44)
--- NOTE | 2020-05-27 22:45 | NUR ---
PATIENT IS TURNED TO THE RIGHT
[2020-05-28] MEDS ORDERED: IPRATROPIUM NEB FS 0.5 MG/2.5 ML AMPUL.NEB ONE ×2 (00:04→03:56)
--- NOTE | 2020-05-28 00:04 | NUR ---
CALLED RT FOR BREATHING TREATMENT
[2020-05-28] MEDS: IPRATROPIUM NEB FS 0.5 MG/2.5 ML AMPUL.NEB NEB SCH ×7 (00:10→23:52)
--- NOTE | 2020-05-28 00:23 | NUR ---
PATIENT IS TURNED TO THE LEFT
--- NOTE | 2020-05-28 02:15 | NUR ---
PATIENT IS TURNED TO THE RIGHT
[2020-05-28] MEDS: IV NS 0.9% 1,000 ML IV PRN ×2 (02:18→11:26)
--- NOTE | 2020-05-28 04:06 | NUR ---
PATIENT IS TURNED TO THE RIGHT.
[2020-05-28] MEDS: ZOSYN IVPB 3.375 G in IV D5W 50ml IV SCH ×4 (04:19→22:23)
[2020-05-28] MEDS ORDERED: CLONIDINE HCL 0.1 MG TABLET ONE (05:01)
[2020-05-28] MEDS: hydrALAZINE HCL 25 MG TABLET GT SCH ×3 (05:31→22:26)
[2020-05-28] MEDS: CLONIDINE HCL 0.1 MG TABLET PO SCH ×3 (05:31→22:25)
--- NOTE | 2020-05-28 05:58 | NUR ---
RT pt received on mechanical vent with current settings. trached, shiley 7 xlt. trach secure and patent. vent plugged in to red outlet. ambu bag at bedside. spare trach at bedside. no sob, no resp distress.
--- NOTE | 2020-05-28 06:05 | NUR ---
PATIENT HAD A BOWEL MOVEMENT. PATIENT GIVEN A BED BATH. PATIENT IS IN CLEAN GOWNS, SHEETS. AND TURNED TO THE LEFT.
--- NOTE | 2020-05-28 06:07 | NUR ---
TELE 308-3
--- NOTE | 2020-05-28 06:15 | NUR ---
REPORT GIVEN TO VERN PAINTER FOR KRISTINA.
--- NOTE | 2020-05-28 06:49 | NUR ---
PATIENT BROUGHT TO ROOM FOR KRISTINA.
--- NOTE | 2020-05-28 07:30 | NUR ---
TELE/RN ADMITTING NOTE Received patient in 308-1 in bed, with HOB elevated. Patient awake, non-verbal. Breathing even and non-labored on current vent settings, Shiley #7, AC 16, FiO2 - 50, TV - 550, PEEP - 5. No respiratory or cardiac distress noted. On tele monitor, reading SR 67. IV access noted on R hand #24g, patent and intact, and flushing well. G-tube in place, no gastric residual noted, patent and intact. Zarate in place, draining clear marck urine well. Photos of skin impairments taken and placed on chart. Bed locked to its lowest position, side rails x 3 up, bed alarm on. Will continue with current medical management.
[2020-05-28 08:00] VITALS: BP 153/79
[2020-05-28] MEDS: VANCOMYCIN 1 GM in IV D5W 250ml IV SCH (08:00)
--- NOTE | 2020-05-28 08:34 | NUR ---
TELE/RN NOTE Held vanco IV. Patient's vanco trough 33, notified pharmacy.
[2020-05-28] MEDS: ASCORBIC ACID 500 MG TABLET GT SCH ×2 (09:45→17:45)
[2020-05-28] MEDS: MULTIVITAMINS,THERAGRAN 1 UDTAB TABLET GT SCH (09:45)
[2020-05-28] MEDS: LEVOTHYROXINE SODIUM 25 MCG TABLET GT SCH (09:45)
[2020-05-28] MEDS: FERROUS SULFATE (325 MG) 325 MG/TAB TABLET GT SCH (09:45)
[2020-05-28] MEDS: ACIDOPHILUS/BULGARICUS 1 EACH TAB.CHEW GT SCH (09:45)
[2020-05-28] MEDS: ZINC SULFATE 220 MG CAPSULE GT SCH (09:45)
[2020-05-28] MEDS: POLYETHYLENE GLYCOL 3350 17 GM POWD.PACK GT SCH (09:46)
[2020-05-28] MEDS: METOPROLOL TARTRATE 50 MG TABLET GT SCH ×2 (09:46→17:45)
[2020-05-28] MEDS: FINASTERIDE (5 MG) 5 MG TABLET GT SCH (09:46)
[2020-05-28] MEDS: AMLODIPINE BESYLATE 5 MG TABLET GT SCH ×2 (09:47→20:57)
[2020-05-28] MEDS: LISINOPRIL (20MG) 20 MG TABLET GT SCH ×2 (09:47→20:57)
[2020-05-28] MEDS: DOXAZOSIN MESYLATE (1 MG) 1 MG TABLET PO SCH (09:47)
[2020-05-28] MEDS: BLOOD SUGAR DIAGNOSTIC 1 EACH STRIP IN SCH ×3 (12:48→22:23)
--- NOTE | 2020-05-28 13:00 | NUR ---
TELE/RN NOTE Patient's IV access on R hand #24 appears to be infiltrated. Removed IV access with catheter intact, placed pressure with gauze and tape. Attempted to insert 2 IVs, failed, patient is hard stick. Notified Dre IC DESIGNER GATE ARRAYS for order for midline access.
[2020-05-28] MEDS: JEVITY 1.2 CAL 1,000 ML BOTTLE GT PRN (13:33)
--- NOTE | 2020-05-28 15:40 | NUR ---
TELE/RN NOTE Midline access inserted on JUNIE #18g, patent and intact, and flushing well.
[2020-05-28 16:00] VITALS: BP 126/86
--- NOTE | 2020-05-28 17:58 | NUR ---
TELE/RN NOTE Lab called, patient reported to be positive for MRSA on R Nare. Notified Dre Murrell NP. Ordered Bactroban q12h topical on nares. Orders carried out.
--- NOTE | 2020-05-28 19:38 | NUR ---
TELE/RN CLOSING NOTE Patient awake in bed, kept HOB elevated, non-verbal. Breathing even and non-labored on current vent settings, Shiley #7, AC 16, FiO2 - 50, TV - 550, PEEP - 5. No respiratory or cardiac distress noted. On tele monitor, reading SR 83. Midline access noted on JUNIE, patent and intact, and flushing well. G-tube in place, no gastric residual noted, patent and intact, running Jevity 1.2 @65 ml/hr. Zarate in place, draining clear marck urine well. Fall precautions maintained. Will endorse to hand zipper trimmer nurse.
[2020-05-28 20:00] VITALS: BP 127/80
--- NOTE | 2020-05-28 20:00 | NUR ---
TELERN RT AT BEDSIDE. PATIENT ABLE TO MOUTH WORDS VENT DEPENDENT. NO RESPIRATORY DISTRESS. SR ON THE MONITOR CONTINUED MONITORING
[2020-05-28] MEDS: FLUCONAZOLE IN NS 100 MG in PREMIX 1 EA IV SCH ×2 (21:05)
[2020-05-28] MEDS: ENOXAPARIN SODIUM 40 MG/0.4 ML DISP.SYRIN SQ SCH (21:06)
[2020-05-28] MEDS: MUPIROCIN OINT 2% 22 GM TUBE NS SCH (21:11)
[2020-05-29] VITALS: BP 121/81
--- NOTE | 2020-05-29 00:40 | NUR ---
TELERN REMAINS UNCHANGED. REQUIRES DEEP SUCTIONING, THICK SECRETIONS NOTED. GT FEEDINGS WELL TOLERATED, LESS THAN 5 CC RESIDUALS. KEPT COMFORTABLE CONTINUED MONITORING. CLOSELY WATCHED.
[2020-05-29] MEDS: IPRATROPIUM NEB FS 0.5 MG/2.5 ML AMPUL.NEB NEB SCH ×6 (02:35→23:21)
[2020-05-29 04:00] VITALS: BP 124/72
[2020-05-29] MEDS: ZOSYN IVPB 3.375 G in IV D5W 50ml IV SCH ×4 (04:01→23:45)
--- NOTE | 2020-05-29 04:45 | NUR ---
TELERN DUE MEDS ADMINISTERED.
[2020-05-29] MEDS: CLONIDINE HCL 0.1 MG TABLET PO SCH ×3 (05:23→20:42)
[2020-05-29] MEDS: hydrALAZINE HCL 25 MG TABLET GT SCH ×3 (05:24→20:43)
[2020-05-29 06:23] LABS: CALCIUM, SERUM 8.4 mg/dL (8.5-10.1); CREATININE 1.2 mg/dL (0.6-1.3); POTASSIUM 3.4 mmol/L (3.5-5.1)
[2020-05-29] MEDS: LEVOTHYROXINE SODIUM 25 MCG TABLET GT SCH (07:12)
--- NOTE | 2020-05-29 07:30 | NUR ---
MS RN OPENING NOTES: RECEIVED PATIENT AWAKE IN BED IN NO ACUTE SIGNS OF DISTRESS.HOB ELEVATED. A/O X 2-3. ABLE TO MOUTH WORDS, NO C/O OF PAIN OR DISCOMFORTS GESTURED AT THIS TIME. PT ON TRACH CONNECTED TO MECHANICAL VENT AT SETTINGS OF AC 16, TV 550, FI02 40% AND PEEP 5, TOLERATING SETTINGS WELL. EXTERNAL MONITOR SHOWS CURRENT READING OF NSR WITH HR ON THE 80'S, NO C/O CARDIAC DISTRESS NOTED AT THIS TIME. JUNIE MIDLINE INTACT WITH IVF OF NS AT 60ML/HR RUNNING. G-TUBE INTACT AND PATENT WITH FEEDING OF JEVITY 1.2 AT 65 ML/HR IN PROGRESS AND TOLERATING WELL. ASPIRATION PRECAUTIONS MAINTAINED. MARIN IN PLACE DRAINING CLEAR YELLOW URINE VIA GRAVITY. SAFETY MEASURES IN PLACE: BED IN LOWEST LOCKED POSITION WITH SR UP X2 AND CALL LIGHT WITHIN REACH. WILL CONTINUE TO MONITOR.
[2020-05-29 08:00] VITALS: BP 144/95
[2020-05-29] MEDS: BLOOD SUGAR DIAGNOSTIC 1 EACH STRIP IN SCH ×4 (08:13→22:43)
[2020-05-29] MEDS: ASCORBIC ACID 500 MG TABLET GT SCH ×2 (08:42→16:22)
[2020-05-29] MEDS: FINASTERIDE (5 MG) 5 MG TABLET GT SCH (08:42)
[2020-05-29] MEDS: DOXAZOSIN MESYLATE (1 MG) 1 MG TABLET PO SCH (08:43)
[2020-05-29] MEDS: AMLODIPINE BESYLATE 5 MG TABLET GT SCH ×2 (08:43→20:44)
[2020-05-29] MEDS: FERROUS SULFATE (325 MG) 325 MG/TAB TABLET GT SCH (08:43)
[2020-05-29] MEDS: ZINC SULFATE 220 MG CAPSULE GT SCH (08:45)
[2020-05-29] MEDS: ACIDOPHILUS/BULGARICUS 1 EACH TAB.CHEW GT SCH (08:45)
[2020-05-29] MEDS: METOPROLOL TARTRATE 50 MG TABLET GT SCH ×2 (08:46→16:22)
[2020-05-29] MEDS: POLYETHYLENE GLYCOL 3350 17 GM POWD.PACK GT SCH (08:46)
[2020-05-29] MEDS: LISINOPRIL (20MG) 20 MG TABLET GT SCH ×2 (08:47→20:43)
[2020-05-29] MEDS: MULTIVITAMINS,THERAGRAN 1 UDTAB TABLET GT SCH (08:58)
[2020-05-29] MEDS: MUPIROCIN OINT 2% 22 GM TUBE NS SCH ×2 (09:03→20:53)
[2020-05-29] MEDS: VANCOMYCIN 1 GM in IV D5W 250ml IV SCH ×2 (09:04→22:37)
--- NOTE | 2020-05-29 09:18 | NUR ---
WOUND CARE CONSULT: PTY PRESENTS WITH SACRAL STAGE 4 ULCER WITH PURULENT DRAINAGE, PRESENT ON ADMISSION. RECOMMEND SURGICAL CONSULT. DR OWEN NAIK NOTIFIED OF CONSULT REQUEST. PT IS ON SURYA ISOFLEX LOW AIRLOSS BED. RECOMMENDATIONS MADE FOR SKIN PROTECTION AND WOUND CARE. DISCUSSED WITH NURSING STAFF. IN AGREEMENT WITH PLAN OF CARE. Addendum: 05/29/20 at 0919 by KASSY ROBISON WNDNU Amended: Links added.
[2020-05-29] MEDS ORDERED: POTASSIUM CHLORIDE 20 MEQ POWDER PACKET GT ONE (09:30)
[2020-05-29] MEDS: DAKINS QUARTER STRENGTH (0.125%) 480 ML BOTTLE TOP SCH (09:39)
--- NOTE | 2020-05-29 10:22 | NUR ---
RN NOTES PT NOTED WITH LOW POTASSIUM 3.4, KLOR CON 20 MEQ POWDER ADMINISTERED VIA GT ORDERED. WILL CONTINUE TO MONITOR.
[2020-05-29 12:00] VITALS: BP 144/84
[2020-05-29] MEDS: JEVITY 1.2 CAL 1,000 ML BOTTLE GT PRN (12:46)
[2020-05-29] MEDS: IV NS 0.9% 1,000 ML IV PRN (13:30)
[2020-05-29 16:00] VITALS: BP 128/79
--- NOTE | 2020-05-29 18:35 | NUR ---
RN NOTES PT'S OLD MARIN CATHETER FR#16 CHANGED TO NEW FR# 16 PER MD ORDERED. WILL CONTINUE TO MONITOR.
--- NOTE | 2020-05-29 18:51 | NUR ---
MS RN CLOSING NOTES: PATIENT IN BED LYING AT MODERATE HIGH BACKREST POSITION. A/O X 2-3. ABLE TO MOUTH WORDS. PT ON TRACH CONNECTED TO MECHANICAL VENT AT SETTINGS OF AC 16, TV 550, FI02 40% AND PEEP 5, TOLERATING SETTINGS WELL WITH NO ACUTE RESPIRATORY DISTRESS NOTED DURING THE DAY. EXTERNAL MONITOR SHOWS CURRENT READING OF SB WITH HR OF 58, NO C/O CARDIAC DISTRESS NOTED. JUNIE MIDLINE INTACT WITH IVF OF NS AT 60ML/HR/HR INFUSING WELL. G-TUBE INTACT AND PATENT WITH FEEDING OF JEVITY 1.2 AT 65 ML/HR IN PROGRESS AND TOLERATING WELL. ASPIRATION PRECAUTIONS MAINTAINED. MARIN IN PLACE DRAINING CLEAR YELLOW URINE VIA GRAVITY. PT TURNED AND REPOSITIONED Q 2HRS AND PRN. KEPT CLEAN, DRY AND COMFORTABLE. SAFETY MEASURES IN PLACE: BED IN LOWEST LOCKED POSITION WITH SR UP X2 AND CALL LIGHT WITHIN REACH. WILL ENDORSE TO OFFSET MACHINE OPERATOR NURSE FOR KRISTINA
[2020-05-29 20:00] VITALS: BP 139/87
[2020-05-29] MEDS: FLUCONAZOLE IN NS 100 MG in PREMIX 1 EA IV SCH ×2 (20:48)
[2020-05-29] MEDS: ENOXAPARIN SODIUM 40 MG/0.4 ML DISP.SYRIN SQ SCH (20:48)
[2020-05-30] VITALS: BP 141/80
[2020-05-30] MEDS: IPRATROPIUM NEB FS 0.5 MG/2.5 ML AMPUL.NEB NEB SCH ×5 (01:46→20:34)
[2020-05-30] MEDS: ZOSYN IVPB 3.375 G in IV D5W 50ml IV SCH ×4 (04:44→22:47)
[2020-05-30] MEDS: hydrALAZINE HCL 25 MG TABLET GT SCH ×2 (06:01→14:40)
[2020-05-30] MEDS: CLONIDINE HCL 0.1 MG TABLET PO SCH ×2 (06:02→14:40)
[2020-05-30] MEDS: LEVOTHYROXINE SODIUM 25 MCG TABLET GT SCH (06:03)
[2020-05-30 07:43] LABS: BASOPHILS % (AUTO) 0.2 % (0.0-2.0); CALCIUM, SERUM 8.5 mg/dL (8.5-10.1); EOSINOPHILS % (AUTO) 8.9 % (0.0-6.0); HEMATOCRIT 26 % (39-51); HEMOGLOBIN 8.7 g/dL (13.5-17.5); LYMPHOCYTES # (AUTO) 1.3 /CMM (0.8-4.8); LYMPHOCYTES % (AUTO) 9.3 % (20.0-44.0); MEAN CORPUSCULAR HGB CONC 33 g/dl (31.0-36.0); MEAN CORPUSCULAR VOLUME 92 fL (80-96); MONOCYTES # (AUTO) 0.8 /CMM (0.1-1.30); MONOCYTES % (AUTO) 5.9 % (2.0-12.0); NEUTROPHILS # (AUTO) 10.3 /CMM (1.8-8.9); NEUTROPHILS % (AUTO) 75.7 % (43.0-81.0); PLATELET COUNT (AUTO) 357 /CMM (150-450); POTASSIUM 3.5 mmol/L (3.5-5.1); RED BLOOD CELL COUNT(AUTO) 2.89 MIL/uL (4.5-6.0); WHITE BLOOD COUNT (AUTO) 13.6 K/uL (4.3-11.0)
[2020-05-30] MEDS: BLOOD SUGAR DIAGNOSTIC 1 EACH STRIP IN SCH ×3 (07:50→17:27)
[2020-05-30 08:00] VITALS: BP 131/93
--- NOTE | 2020-05-30 08:00 | NUR ---
non verbal this am. vent settings unchanged.tube feeding as well as iv infusing.appears comfortable. vs stable.
[2020-05-30] MEDS: JEVITY 1.2 CAL 1,000 ML BOTTLE GT PRN (08:37)
[2020-05-30] MEDS: POLYETHYLENE GLYCOL 3350 17 GM POWD.PACK GT SCH (09:00)
[2020-05-30] MEDS: VANCOMYCIN 1 GM in IV D5W 250ml IV SCH (09:40)
[2020-05-30] MEDS: FERROUS SULFATE (325 MG) 325 MG/TAB TABLET GT SCH (10:05)
[2020-05-30] MEDS: ASCORBIC ACID 500 MG TABLET GT SCH ×2 (10:06→17:26)
[2020-05-30] MEDS: ACIDOPHILUS/BULGARICUS 1 EACH TAB.CHEW GT SCH (10:06)
[2020-05-30] MEDS: ZINC SULFATE 220 MG CAPSULE GT SCH (10:06)
[2020-05-30] MEDS: DOXAZOSIN MESYLATE (1 MG) 1 MG TABLET PO SCH (10:06)
[2020-05-30] MEDS: MULTIVITAMINS,THERAGRAN 1 UDTAB TABLET GT SCH (10:06)
[2020-05-30] MEDS: MUPIROCIN OINT 2% 22 GM TUBE NS SCH (10:09)
[2020-05-30] MEDS: DAKINS QUARTER STRENGTH (0.125%) 480 ML BOTTLE TOP SCH (10:12)
[2020-05-30] MEDS: FINASTERIDE (5 MG) 5 MG TABLET GT SCH (10:26)
[2020-05-30] MEDS: METOPROLOL TARTRATE 50 MG TABLET GT SCH ×2 (10:31→17:26)
--- NOTE | 2020-05-30 10:45 | NUR ---
tube feeding residual 190 ml.turned off.
[2020-05-30] MEDS: LISINOPRIL (20MG) 20 MG TABLET GT SCH (11:30)
[2020-05-30 12:00] VITALS: BP 128/86
[2020-05-30] MEDS: IV NS 0.9% 1,000 ML IV PRN (12:41)
--- NOTE | 2020-05-30 12:50 | NUR ---
tube feeding turned back on. now has no residual.
[2020-05-30] MEDS: AMLODIPINE BESYLATE 5 MG TABLET GT SCH (13:43)
[2020-05-30 16:00] VITALS: BP 135/88
--- NOTE | 2020-05-30 17:59 | NUR ---
no residual on tube feeding this awilda.
--- NOTE | 2020-05-30 19:30 | NUR ---
MS/TELE/RN RECEIVED PATIENT AWAKE, NON VERBAL, APPEAR COMFORTABLE, NO DISTRESS NOTE, ON MECHANICAL VENTILATOR, HOB ELEVATED, GTUBE FEEDING INFUSING, NO RESIDUAL NOTED, IVF INFUSING, WILL MONITOR.
[2020-05-30 20:34] VITALS: BP 159/67
[2020-05-30] MEDS ORDERED: VANCOMYCIN HCL 0.75 GM in IV D5W 250 ML IV SCH (21:00)
[2020-05-31] MEDS: IPRATROPIUM NEB FS 0.5 MG/2.5 ML AMPUL.NEB NEB SCH ×6 (00:25→20:04)
[2020-05-31] MEDS: CLONIDINE HCL 0.1 MG TABLET PO SCH ×4 (00:47→21:44)
[2020-05-31 00:49] VITALS: BP 148/78
[2020-05-31] MEDS: ENOXAPARIN SODIUM 40 MG/0.4 ML DISP.SYRIN SQ SCH ×3 (00:49→21:46)
[2020-05-31] MEDS: BLOOD SUGAR DIAGNOSTIC 1 EACH STRIP IN SCH ×5 (00:51→22:13)
[2020-05-31] MEDS: AMLODIPINE BESYLATE 5 MG TABLET GT SCH ×3 (00:52→21:44)
[2020-05-31] MEDS: LISINOPRIL (20MG) 20 MG TABLET GT SCH ×3 (00:52→21:44)
[2020-05-31] MEDS: hydrALAZINE HCL 25 MG TABLET GT SCH ×4 (00:53→21:43)
[2020-05-31] MEDS: MUPIROCIN OINT 2% 22 GM TUBE NS SCH ×3 (00:54→21:52)
--- NOTE | 2020-05-31 02:25 | NUR ---
MS/TELE/RN PATIENT TRYING TO PULL OUT TRACH AND GTUBE, OBTAINED ORDER FOR SOFT WRIST RESTRAINT.
[2020-05-31] MEDS: ZOSYN IVPB 3.375 G in IV D5W 50ml IV SCH ×4 (04:04→21:52)
[2020-05-31 04:05] VITALS: BP 131/71
[2020-05-31] MEDS: LEVOTHYROXINE SODIUM 25 MCG TABLET GT SCH (06:26)
--- NOTE | 2020-05-31 07:30 | NUR ---
MS/RN Opening note Patient received from account development associate. Non verbal, trach to vent, vent setting: Viral #7 -AC 16 -TV 550 -FIO2 40% -Peep 5 Appears without any respiratory distress, saturating 98%. Zarate catheter draining pale yellow clear urine. GT feeding (jevity)infusing @60ml/hr, no residual noted, appears to be tolerating well. Right upper arm with midline, normal saline infusing @60ml/hr. Safety measures in place, bed in low setting, side rails X3 in upright position. Alarms to vent, pulse ox all checked and in working order. Ambubag at bedside. Will continue to monitor and ensure safety.
--- NOTE | 2020-05-31 07:37 | NUR ---
MS/TELE/RN PATIENT IS SLEEPING,APPEAR COMFORTABLE, NO DISTRESS NOTED, HOB ELEVATED, G TUBE FEEDING INFUSING, ALL NEEDS ATTENDED AT THIS TIME, ENDORSED TO NEXT RN FOR CONTINUITY OF CARE.
[2020-05-31 07:56] LABS: CALCIUM, SERUM 8.1 mg/dL (8.5-10.1); CREATININE 0.9 mg/dL (0.6-1.3); POTASSIUM 3.3 mmol/L (3.5-5.1)
[2020-05-31 08:00] VITALS: BP_SYST 127; BP_SYST 129; BP_DIAS 73
[2020-05-31] MEDS: DAKINS QUARTER STRENGTH (0.125%) 480 ML BOTTLE TOP SCH (09:00)
--- NOTE | 2020-05-31 09:00 | NUR ---
MS/RN Medications Morning medication administered via GT, tube flushed with water before and after administration.
[2020-05-31] MEDS: FERROUS SULFATE (325 MG) 325 MG/TAB TABLET GT SCH (09:36)
[2020-05-31] MEDS: FINASTERIDE (5 MG) 5 MG TABLET GT SCH (09:37)
[2020-05-31] MEDS: ACIDOPHILUS/BULGARICUS 1 EACH TAB.CHEW GT SCH (09:37)
[2020-05-31] MEDS: MULTIVITAMINS,THERAGRAN 1 UDTAB TABLET GT SCH (09:37)
[2020-05-31] MEDS: ZINC SULFATE 220 MG CAPSULE GT SCH (09:37)
[2020-05-31] MEDS: METOPROLOL TARTRATE 50 MG TABLET GT SCH ×2 (09:38→17:00)
[2020-05-31] MEDS: ASCORBIC ACID 500 MG TABLET GT SCH ×2 (09:38→17:15)
[2020-05-31] MEDS: DOXAZOSIN MESYLATE (1 MG) 1 MG TABLET PO SCH (09:38)
[2020-05-31] MEDS: POLYETHYLENE GLYCOL 3350 17 GM POWD.PACK GT SCH (09:40)
[2020-05-31] MEDS: IV NS 0.9% 1,000 ML IV PRN (09:56)
[2020-05-31] MEDS ORDERED: POTASSIUM CHLORIDE 20 MEQ POWDER PACKET PO SCH (11:30)
--- NOTE | 2020-05-31 11:30 | NUR ---
MS/RN S/B Surgery Patient seen and examined by Dr Jasso - order entered for bedside excisional debridement. consent to be obtained.
[2020-05-31 12:00] VITALS: BP 121/72
--- NOTE | 2020-05-31 12:30 | NUR ---
MS/RN Consent called and telephone consent obtained for serial debridement. Consent form placed in front of chart.
[2020-05-31] MEDS: JEVITY 1.2 CAL 1,000 ML BOTTLE GT PRN (13:17)
--- NOTE | 2020-05-31 14:41 | NUR ---
MS/RN Supplies Supplies requested for excisional debridement of sacral wound placed at bedside.
[2020-05-31] MEDS ORDERED: SILVER NITRATE APPLICATOR 1 EA BOX TP ONE (15:00)
[2020-05-31 16:00] VITALS: BP 129/90
--- NOTE | 2020-05-31 17:25 | NUR ---
MS/RN S/B Dr Myrick Seen by Dr Myrick - stable for lower level of care, anticipate weaning in sub acute.
--- NOTE | 2020-05-31 18:36 | NUR ---
MS/RN End note Patient remains in stable condition. Stable on vent, no distress noted. All medications as administered via GT. Will endorse to night manager.
[2020-05-31 20:00] VITALS: BP 152/98
--- NOTE | 2020-05-31 20:58 | NUR ---
REGULATOR PIN INSERTER OPENING NOTES RECEIVED PATIENT IN BED SLEEPING; WAKES UP TO NAME. ON VENTILATOR; TOLERATING SETTINGS WELL. EXTERNAL HEART MONITOR READS SINUS DAISY AT 54. GTUBE INTACT AND FLUSHES WELL; JEVITY INFUSING AT 65ML/HR. IV MIDLINE ON R ARM ON NS @ 60 ML/HR. MARIN CATHETER DRAINING CLEAR YELLOW URINE BY GRAVITY. NO S/S OF PAIN OR DISCOMFORT AT THE TIME. SAFETY MEASURES IN PLACE; BED IN LOWEST LOCKED POSITION; SIDE RAILS UPX2; CALL LIGHT WITHIN REACH. WILL CONTINUE TO MONITOR.
[2020-06-01] VITALS: BP 153/95
[2020-06-01] MEDS: IPRATROPIUM NEB FS 0.5 MG/2.5 ML AMPUL.NEB NEB SCH ×7 (00:23→23:30)
--- NOTE | 2020-06-01 01:11 | NUR ---
RN NOTES PATIENT WILL HAVE SACRAL WOUND DEBRIDEMENT ON 06/01/2020; HELD LOVENOX. NO S/S OF BLEEDING. RENEWED ORDER FOR SOFT RESTRAINT ON RIGHT WRIST; PATIENT IS CALM AT THE MOMENT WITH NO SKIN BREAKDOWN. WILL CONTINUE TO MONITOR.
--- NOTE | 2020-06-01 01:47 | NUR ---
RN NOTES GT JEVITY 1.2 AT 60ML/HR. NOTED WITH RESIDUAL >60ML AT 0145. HELD FEEDINGS AT THIS TIME. WILL CONTINUE TO MONITOR.
[2020-06-01 04:00] VITALS: BP 156/105
[2020-06-01] MEDS: ZOSYN IVPB 3.375 G in IV D5W 50ml IV SCH ×3 (04:25→15:14)
[2020-06-01] MEDS: CLONIDINE HCL 0.1 MG TABLET PO SCH ×3 (05:17→20:58)
[2020-06-01] MEDS: hydrALAZINE HCL 25 MG TABLET GT SCH ×3 (05:18→20:57)
[2020-06-01] MEDS: IV NS 0.9% 1,000 ML IV PRN (05:20)
[2020-06-01 06:32] LABS: CALCIUM, SERUM 8.7 mg/dL (8.5-10.1); CREATININE 0.8 mg/dL (0.6-1.3); POTASSIUM 3.7 mmol/L (3.5-5.1)
[2020-06-01] MEDS: LEVOTHYROXINE SODIUM 25 MCG TABLET GT SCH (06:38)
[2020-06-01] MEDS: BLOOD SUGAR DIAGNOSTIC 1 EACH STRIP IN SCH ×4 (06:38→21:57)
--- NOTE | 2020-06-01 06:47 | NUR ---
FERTILIZER SUPERVISOR CLOSING NOTES PATIENT IN BED SLEEPING; WAKES UP TO NAME. ON VENTILATOR; TOLERATING SETTINGS WELL. EXTERNAL HEART MONITOR READS NSR AND HR AT 70'S. GTUBE INTACT AND FLUSHES WELL; RESIDUAL IS 50ML AND JEVITY 1.2 HELD. IV MIDLINE ON R ARM ON NS @ 60 ML/HR. MARIN CATHETER DRAINING CLEAR YELLOW URINE BY GRAVITY. SOFT RESTRAINT ON RIGHT WRIST; NO SKIN BREAKDOWN NOTED. SAFETY MEASURES IN PLACE; BED IN LOWEST LOCKED POSITION; SIDE RAILS UPX2; CALL LIGHT WITHIN REACH. WILL ENDORSE KRISTINA TO ONCOMING NURSE.
--- NOTE | 2020-06-01 07:26 | NUR ---
RN/ MS OPENING NOTES PT RECEIVED FROM TUNNELLER. PT LAYING ON BED. NON VERBAL. EYES OPEN SPONTANEOUSLY TO SOUND AND LIGHT TOUCH. JUNIE MIDLINE FLUSHING WELL. PATENT, NO SIGNS OF INFILTRATION. MARIN CATHETER DRAINING CLEAR YELLOW URINE. SOFT RESTRAINTS ON RIGHT WRIST. WILL CONTINUE PLAN OF CARE. VENT SETTINGS DESTINEE #7 AC 16 TV 550 FIO2 40% PEEP 5
[2020-06-01 08:00] VITALS: BP 152/106
[2020-06-01] MEDS: METOPROLOL TARTRATE 50 MG TABLET GT SCH ×2 (09:00→16:48)
--- NOTE | 2020-06-01 09:00 | NUR ---
MS/RN Medications Morning medications administered via GT.
[2020-06-01] MEDS: ASCORBIC ACID 500 MG TABLET GT SCH ×2 (09:09→16:48)
[2020-06-01] MEDS: POLYETHYLENE GLYCOL 3350 17 GM POWD.PACK GT SCH (09:09)
[2020-06-01] MEDS: AMLODIPINE BESYLATE 5 MG TABLET GT SCH ×2 (09:10→20:58)
[2020-06-01] MEDS: FERROUS SULFATE (325 MG) 325 MG/TAB TABLET GT SCH (09:10)
[2020-06-01] MEDS: DOXAZOSIN MESYLATE (1 MG) 1 MG TABLET PO SCH (09:10)
[2020-06-01] MEDS: LISINOPRIL (20MG) 20 MG TABLET GT SCH ×2 (09:11→20:58)
[2020-06-01] MEDS: ACIDOPHILUS/BULGARICUS 1 EACH TAB.CHEW GT SCH (09:11)
[2020-06-01] MEDS: FINASTERIDE (5 MG) 5 MG TABLET GT SCH (09:11)
[2020-06-01] MEDS: MUPIROCIN OINT 2% 22 GM TUBE NS SCH ×2 (09:11→20:59)
[2020-06-01] MEDS: ZINC SULFATE 220 MG CAPSULE GT SCH (09:11)
[2020-06-01] MEDS: DAKINS QUARTER STRENGTH (0.125%) 480 ML BOTTLE TOP SCH (09:11)
[2020-06-01] MEDS: MULTIVITAMINS,THERAGRAN 1 UDTAB TABLET GT SCH (09:11)
--- NOTE | 2020-06-01 10:15 | NUR ---
MS/RN S/B Dr Owen Seen by DNP - discharge planning back to sub acute after bedside debridement of sacral wound.
--- NOTE | 2020-06-01 11:23 | NUR ---
MS/RN Blood sugar Blood sugar 90, no insulin coverage needed.
--- NOTE | 2020-06-01 12:11 | NUR ---
MS/RN S/B Surgery Seen by Dr Jasso / Praveena - wound debrided at bedside. Addendum: 06/01/20 at 1213 by BRIAN VERDUGO Wound cultured, swab sent to lab
[2020-06-01 16:00] VITALS: BP 134/86
[2020-06-01] MEDS: JEVITY 1.2 CAL 1,000 ML BOTTLE GT PRN (17:03)
--- NOTE | 2020-06-01 18:48 | NUR ---
MS/ RN CLOSING NOTES PT LAYING IN BED. NO S/S OF DISTRESS OR DISCOMFORT/ PT NONVERBAL. ALERT AND ORIENTED TIMES 1. JUNIE MIDLINE FLUSHING WELL. PATENT, NO SIGNS OF INFILTRATION. G TUBE PLACED ON RIGHT LOCATION. MEDICATIONS, FLUIDS, FEEDING FLOWED WELL. PATENT. PT TURNED AND REPOSITIONED. VENT SETTINGS [facility]7 AC 16 TV 550 FIO2 40% PEEP 5 SPO2 95%
--- NOTE | 2020-06-01 19:44 | NUR ---
KITCHEN LEAD NOTES PATIENT IN BED, OPENS EYES, NONVERBAL. BREATHING EVEN AND UNLABORED ON MV. SHOWS NO SIGNS OF ACUTE RESPIRATORY DISTRESS, NO ACUTE PAIN. FC INTACT AND IN PLACE FLOWING YELLOW CLEAR URINE. GTUBE RUNNING JEVITY AT 65ML/HR. WITH 60ML RESIDUAL. WILL PUT ON HOLD FOR AN HOUR. JUNIE MIDLINE RUNNING NS AT 60ML/HR. SHOWS NO SIGNS OF INFILTRATION, NO REDNESS. SAFETY PRECAUTIONS IN PLACE. BED IN LOWEST POSITION, LOCKED, AND CALL LIGHT KEPT WITHIN REACH. WILL CONTINUE TO MONITOR.
[2020-06-01 20:00] VITALS: BP 148/100
[2020-06-01] MEDS: ENOXAPARIN SODIUM 40 MG/0.4 ML DISP.SYRIN SQ SCH (20:56)
[2020-06-01] MEDS: CEFEPIME 2 GM in IV D5W 100 ML IV SCH (21:03)
[2020-06-02] VITALS (7 sets, daily range): BP systolic 110–162; BP diastolic 56–100
[2020-06-02] MEDS: IV NS 0.9% 1,000 ML IV PRN (03:14)
[2020-06-02] MEDS: CEFEPIME 2 GM in IV D5W 100 ML IV SCH ×3 (04:01→21:31)
[2020-06-02] MEDS: IPRATROPIUM NEB FS 0.5 MG/2.5 ML AMPUL.NEB NEB SCH ×6 (04:06→23:10)
[2020-06-02] MEDS: CLONIDINE HCL 0.1 MG TABLET PO SCH ×3 (05:23→21:28)
[2020-06-02] MEDS: hydrALAZINE HCL 25 MG TABLET GT SCH ×3 (05:23→21:27)
[2020-06-02] MEDS: LEVOTHYROXINE SODIUM 25 MCG TABLET GT SCH (06:01)
[2020-06-02 06:38] LABS: CALCIUM, SERUM 8.8 mg/dL (8.5-10.1); CREATININE 0.9 mg/dL (0.6-1.3); POTASSIUM 3.4 mmol/L (3.5-5.1)
--- NOTE | 2020-06-02 06:48 | NUR ---
BURNING SUPERVISOR NOTES PATIENT IN BED, OPENS EYES, NONVERBAL. BREATHING EVEN AND UNLABORED ON MV. SHOWS NO SIGNS OF ACUTE RESPIRATORY DISTRESS, NO ACUTE PAIN. FC INTACT AND IN PLACE FLOWING YELLOW CLEAR URINE. GTUBE RUNNING JEVITY AT 65ML/HR. WITH 0ML RESIDUAL. JUNIE MIDLINE RUNNING NS AT 60ML/HR. SHOWS NO SIGNS OF INFILTRATION, NO REDNESS. ALL DUE MEDICATIONS GIVEN. ALL NEEDS ATTENDED TO. SAFETY PRECAUTIONS IN PLACE. BED IN LOWEST POSITION, LOCKED, AND CALL LIGHT KEPT WITHIN REACH. WILL ENDORSE TO ONCOMING NURSE.
[2020-06-02] MEDS: BLOOD SUGAR DIAGNOSTIC 1 EACH STRIP IN SCH ×5 (07:30→21:31)
[2020-06-02] MEDS: MULTIVITAMINS,THERAGRAN 1 UDTAB TABLET GT SCH (08:06)
[2020-06-02] MEDS: POLYETHYLENE GLYCOL 3350 17 GM POWD.PACK GT SCH (08:06)
[2020-06-02] MEDS: METOPROLOL TARTRATE 50 MG TABLET GT SCH ×2 (08:08→16:33)
[2020-06-02] MEDS: DOXAZOSIN MESYLATE (1 MG) 1 MG TABLET PO SCH (08:08)
[2020-06-02] MEDS: FINASTERIDE (5 MG) 5 MG TABLET GT SCH (08:08)
[2020-06-02] MEDS: AMLODIPINE BESYLATE 5 MG TABLET GT SCH ×2 (08:08→21:28)
[2020-06-02] MEDS: FERROUS SULFATE (325 MG) 325 MG/TAB TABLET GT SCH (08:08)
[2020-06-02] MEDS: ZINC SULFATE 220 MG CAPSULE GT SCH (08:08)
[2020-06-02] MEDS: ACIDOPHILUS/BULGARICUS 1 EACH TAB.CHEW GT SCH (08:08)
[2020-06-02] MEDS: LISINOPRIL (20MG) 20 MG TABLET GT SCH ×2 (08:09→21:28)
[2020-06-02] MEDS: MUPIROCIN OINT 2% 22 GM TUBE NS SCH ×2 (09:11→21:31)
[2020-06-02] MEDS: ASCORBIC ACID 500 MG TABLET GT SCH ×2 (09:11→16:33)
[2020-06-02] MEDS: DAKINS QUARTER STRENGTH (0.125%) 480 ML BOTTLE TOP SCH (09:11)
--- NOTE | 2020-06-02 09:38 | NUR ---
MS/ RN OPENING NOTES PATIENT RECEIVED. PT LAYING IN BED. PT NON VERBAL. ALERT AND ORIENTED X1. NO SIGNS OF APPARENT DISTRESS OR DISCOMFORT. VENT SETTINGS: SHILEY #7, AC 16, PEEP 5, TV 550, FIO2 40%. 0800 VITAL SIGNS: 159/ 98, PULSE 61, RESP 20, TEMP 98.2, PULSE OX 100%. JUNIE MIDLINE FLUSHING WELL. PATENT, NO OCCLUSIONS, NO SIGNS OF INFILTRATION. G TUBE RUNNING JEVITY 1.2 AT 65 ML/ HR. NO RESIDUAL VOLUME NOTED. WILL CONTINUE PLAN OF CARE.
[2020-06-02] MEDS ORDERED: POTASSIUM CHLORIDE 20 MEQ POWDER PACKET GT SCH (11:30)
--- NOTE | 2020-06-02 13:01 | NUR ---
trach/vent fio2 40%. pod#1 s/p Excisional debridement of sacral skin, subcutaneous, muscle/fascia and bone.WBC went up, afebrile - currently on IV abx. Wound cx pending. Plan to discharge to [facility] [phone] once cleared for dc. Addendum: 06/02/20 at 1302 by DAMIEN CAMPBELL RN Amended: Links added.
[2020-06-02 13:22] LABS: BASOPHILS # (AUTO) 0.1 /CMM (0.0-0.2); BASOPHILS % (AUTO) 1.1 % (0.0-2.0); EOSINOPHILS % (AUTO) 6.2 % (0.0-6.0); HEMATOCRIT 29 % (39-51); HEMOGLOBIN 9.2 g/dL (13.5-17.5); LYMPHOCYTES # (AUTO) 1.2 /CMM (0.8-4.8); LYMPHOCYTES % (AUTO) 10.4 % (20.0-44.0); MEAN CORPUSCULAR HGB CONC 32 g/dl (31.0-36.0); MEAN CORPUSCULAR VOLUME 92 fL (80-96); MONOCYTES # (AUTO) 0.7 /CMM (0.1-1.30); MONOCYTES % (AUTO) 6.3 % (2.0-12.0); NEUTROPHILS # (AUTO) 8.4 /CMM (1.8-8.9); PLATELET COUNT (AUTO) 398 /CMM (150-450); RED BLOOD CELL COUNT(AUTO) 3.13 MIL/uL (4.5-6.0)
--- NOTE | 2020-06-02 19:25 | NUR ---
RN NOTE Patient Received. Patient is noted in bed with eyes open. Responsive to touch. Breathing is even and non labored with no shortness of breath or acute distress noted. Vent settings in place. Patient continues on tele monitor and noted to be sinus rhythm. Zarate catheter in place and patent. Gtube is noted with HOB elevated and tolerating feeding well. Patient is noted with JUNIE midline intact and patent. Safety measures in place with bed in lowest position and locked. Will continue plan of care as ordered.
[2020-06-02] MEDS: JEVITY 1.2 CAL 1,000 ML BOTTLE GT PRN (19:31)
--- NOTE | 2020-06-02 19:38 | NUR ---
RN/ MS CLOSING NOTES PT LAYING COMFORTABLY IN BED. PT ALERT AND ORIENTED X1. EYES OPEN SPONTANEOUSLY TO SOUND AND TOUCH. G TUBE RUNNING JEVITY. NO RESIDUAL VOLUME NOTED. D/C PLANNING INITIATED. WILL ENDORSE TO TURNER IN. WILL CONTINUE PLAN OF CARE.
--- NOTE | 2020-06-02 19:49 | NUR ---
RT pt received on mechanical vent with current ventilator settings. trached, shiley 7 xlt. trach secure and patent. vent plugged in to red outlet. ambu bag at bedside. spare trach at bedside. no sob, no resp distress. will continue to monitor t/o shift
[2020-06-02] MEDS: ENOXAPARIN SODIUM 40 MG/0.4 ML DISP.SYRIN SQ SCH (21:30)
[2020-06-03] VITALS: BP 153/99
[2020-06-03] MEDS: IPRATROPIUM NEB FS 0.5 MG/2.5 ML AMPUL.NEB NEB SCH ×6 (03:10→22:48)
[2020-06-03 04:00] VITALS: BP 153/99
[2020-06-03] MEDS: CLONIDINE HCL 0.1 MG TABLET PO SCH ×3 (06:10→21:41)
[2020-06-03] MEDS: hydrALAZINE HCL 25 MG TABLET GT SCH ×3 (06:11→21:40)
[2020-06-03] MEDS: CEFEPIME 2 GM in IV D5W 100 ML IV SCH ×3 (06:13→21:39)
[2020-06-03] MEDS: BLOOD SUGAR DIAGNOSTIC 1 EACH STRIP IN SCH ×4 (07:05→21:39)
--- NOTE | 2020-06-03 07:30 | NUR ---
SEQUINS STRINGER OPENING NOTES Patient is in bed resting, non-verbal, opens eyes and follows movement. Breathing is even and unlabored, currently on trach/ventilator w/ the following setting: Shiley #7, AC-16, PEEP-5, TV-550, FiO2 40%. On tele monitoring, reading of sr, hr in the mid 90's. Zarate catheter in place, draining urine of yellow color. Gtube intact and patent, feeding of Jevity 1.2 @ 65cc/hr. no residual. JUNIE midline intact and patent. Safety measures in place: bed locked and on lowest position, sr up x2, call light w/in reach. Will continue to monitor.
--- NOTE | 2020-06-03 07:34 | NUR ---
RN NOTE Patient is noted in bed with eyes open. Responsive to touch. Breathing is even and non labored with no shortness of breath or acute distress noted. Vent settings in place. Patient continues on tele monitor and noted to be sinus rhythm. Zarate catheter in place and patent. Gtube is noted with HOB elevated and tolerating feeding well. Patient is noted with JUNIE midline intact and patent. Safety measures in place with bed in lowest position and locked. Will endorse to continue plan of care as ordered.
[2020-06-03 08:00] VITALS: BP_SYST 155; BP_SYST 164; BP_DIAS 94; BP_DIAS 98
[2020-06-03 08:42] LABS: BASOPHILS # (AUTO) 0.1 /CMM (0.0-0.2); BASOPHILS % (AUTO) 0.5 % (0.0-2.0); EOSINOPHILS % (AUTO) 6.7 % (0.0-6.0); HEMATOCRIT 30 % (39-51); HEMOGLOBIN 9.8 g/dL (13.5-17.5); LYMPHOCYTES # (AUTO) 1.4 /CMM (0.8-4.8); LYMPHOCYTES % (AUTO) 8.7 % (20.0-44.0); MEAN CORPUSCULAR HGB CONC 32 g/dl (31.0-36.0); MEAN CORPUSCULAR VOLUME 91 fL (80-96); MONOCYTES # (AUTO) 1.1 /CMM (0.1-1.30); MONOCYTES % (AUTO) 6.9 % (2.0-12.0); NEUTROPHILS # (AUTO) 11.9 /CMM (1.8-8.9); NEUTROPHILS % (AUTO) 77.2 % (43.0-81.0); PLATELET COUNT (AUTO) 453 /CMM (150-450); RED BLOOD CELL COUNT(AUTO) 3.32 MIL/uL (4.5-6.0); WHITE BLOOD COUNT (AUTO) 15.5 K/uL (4.3-11.0)
[2020-06-03] MEDS: ACIDOPHILUS/BULGARICUS 1 EACH TAB.CHEW GT SCH (09:06)
[2020-06-03] MEDS: METOPROLOL TARTRATE 50 MG TABLET GT SCH ×2 (09:06→16:45)
[2020-06-03] MEDS: FINASTERIDE (5 MG) 5 MG TABLET GT SCH (09:06)
[2020-06-03] MEDS: LEVOTHYROXINE SODIUM 25 MCG TABLET GT SCH (09:07)
[2020-06-03] MEDS: AMLODIPINE BESYLATE 5 MG TABLET GT SCH ×2 (09:07→21:40)
[2020-06-03] MEDS: DOXAZOSIN MESYLATE (1 MG) 1 MG TABLET PO SCH (09:07)
[2020-06-03] MEDS: LISINOPRIL (20MG) 20 MG TABLET GT SCH ×2 (09:07→21:40)
[2020-06-03] MEDS: ASCORBIC ACID 500 MG TABLET GT SCH ×2 (09:07→16:45)
[2020-06-03] MEDS: FERROUS SULFATE (325 MG) 325 MG/TAB TABLET GT SCH (09:08)
[2020-06-03] MEDS: DAKINS QUARTER STRENGTH (0.125%) 480 ML BOTTLE TOP SCH (09:08)
[2020-06-03] MEDS: MUPIROCIN OINT 2% 22 GM TUBE NS SCH ×2 (09:08→21:41)
[2020-06-03] MEDS: POLYETHYLENE GLYCOL 3350 17 GM POWD.PACK GT SCH (09:09)
[2020-06-03] MEDS: MULTIVITAMINS,THERAGRAN 1 UDTAB TABLET GT SCH (09:09)
[2020-06-03] MEDS: ZINC SULFATE 220 MG CAPSULE GT SCH (09:09)
[2020-06-03 09:31] LABS: ALBUMIN 1.9 g/dL (3.4-5.0); BILIRUBIN,TOTAL 0.2 mg/dL (0.2-1.0); CALCIUM, SERUM 8.8 mg/dL (8.5-10.1); CREATININE 0.8 mg/dL (0.6-1.3); MAGNESIUM 1.9 mg/dL (1.8-2.4); PHOSPHORUS 3.9 mg/dL (2.5-4.9); POTASSIUM 3.6 mmol/L (3.5-5.1); TOTAL PROTEIN, SERUM 7.5 g/dL (6.4-8.2)
[2020-06-03 12:00] VITALS: BP 134/88
[2020-06-03 16:00] VITALS: BP_SYST 157; BP_DIAS 90; BP_DIAS 95
[2020-06-03] MEDS: JEVITY 1.2 CAL 1,000 ML BOTTLE GT PRN (17:45)
[2020-06-03] MEDS ORDERED: CEFE2FRO IV (17:51)
[2020-06-03] MEDS ORDERED: ENOX40DI SQ (17:51)
--- NOTE | 2020-06-03 18:41 | NUR ---
RN NOTES PATIENT REPORT GIVEN TO HARRISON OF [facility] ([phone]); DISCHARGE INSTRUCTIONS AND EDUCATION PROVIDED. INFORMED THAT [facility] WILL PICK-UP PATIENT AT [facility] BETWEEN 10:30PM-11:00PM CASE.
--- NOTE | 2020-06-03 18:50 | NUR ---
RN NOTES PATIENT UNABLE TO SIGN DISCHARGE FORM; FORM SIGNED AND WITNESSED BY ME AND INOCENCIO FRIEND, RESPECTIVELY.
--- NOTE | 2020-06-03 19:10 | NUR ---
RN Notes Patient Recieved. Patient is in bed with eyes open, non verbal but responsive to touch. Breathing even and unlabored continues on ventilator and tolerating well. Patient continues on tele monitoring noted to be NSR. Zarate is intact and patent draining clear yellow urine. Gtube intact and patent with HOB elevated, feeding of Jevity 1.2 continues at 65ml/hr. No residual noted. JUNIE midline intact and patent. Patient is scheduled for discharge tonight to [facility]. [facility] scheduled for picking machine operator helper at 2230. Safety precautions in placed with bed in lowest position and locked. Call light within reach. All needs attended to promptly. Will continue to monitor.
--- NOTE | 2020-06-03 19:28 | NUR ---
AIRFIELD DEFENCE GUARD CLOSING NOTES Patient is in bed resting, non-verbal, opens eyes. Breathing even and unlabored, on trach/ventilator w/ current settings tolerated. On tele monitoring, reading of sr, hr in the 70's. Zarate catheter in place, draining urine of yellow color. Gtube intact and patent, feeding of Jevity 1.2 @ 65cc/hr, changed today, no residual. JUNIE midline intact and patent. For scheduled discharge tonight; report given to Monae of [facility]. Exitcare done. Photos of skin issues endorsed to material handler 2nd shift RN. 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 Safety measures maintained: bed locked and on lowest position, sr up x2, call light w/in reach. Endorsed to material handler 2nd shift RN for berto.
[2020-06-03 20:00] VITALS: BP 130/80
[2020-06-03] MEDS: ENOXAPARIN SODIUM 40 MG/0.4 ML DISP.SYRIN SQ SCH (21:43)
--- NOTE | 2020-06-03 22:51 | NUR ---
RN NOTES RECEIVED CALL FROM KB FROM [facility] STATING RN WILL BE LEAVING THE FACILITY AND UNABLE TO TAKE PATIENT FOR ADMISSION. NO ONE WILL BE AVAILABLE TO ADMIT, MARLENY PHILIP MADE AWARE OKAY FOR PT TO STAY TONIGHT, DICER MACHINE OPERATOR MADE AWARE, TRANSPORTATION CANCELLED. SCHEDULED FOR DISCHARGE IN AM.
--- NOTE | 2020-06-03 23:07 | NUR ---
CALLED SCHEDULED AMBULANCE FOR DISCHARGE IN AM . ENGINEERING ADMINISTRATOR WILL BE 06/04/20 AT 0900.
[2020-06-04] VITALS (8 sets, daily range): BP systolic 138–172; BP diastolic 85–94
[2020-06-04] MEDS: IPRATROPIUM NEB FS 0.5 MG/2.5 ML AMPUL.NEB NEB SCH ×5 (04:30→19:30)
[2020-06-04] MEDS: CEFEPIME 2 GM in IV D5W 100 ML IV SCH ×2 (05:20→13:27)
[2020-06-04] MEDS: CLONIDINE HCL 0.1 MG TABLET PO SCH ×2 (05:20→10:21)
[2020-06-04] MEDS: hydrALAZINE HCL 25 MG TABLET GT SCH ×2 (05:20→10:22)
--- NOTE | 2020-06-04 07:22 | NUR ---
RN Notes Patient is in bed with eyes open, non verbal but responsive to touch. Breathing even and unlabored continues on ventilator and tolerating well. Patient continues on tele monitoring noted to be NSR. Zarate is intact and patent draining clear yellow urine. Gtube intact and patent with HOB elevated, feeding of Jevity 1.2 continues at 65ml/hr. No residual noted. JUNIE midline intact and patent. Patient is scheduled for discharge today to [facility]. [facility] scheduled for 0900. Safety precautions in placed with bed in lowest position and locked. Call light within reach. All needs attended to promptly. Will endorse to continue to plan of care as ordered.
--- NOTE | 2020-06-04 07:30 | NUR ---
DRUPAL ARCHITECT OPENING NOTES Patient is in bed, awake, non-verbal, opens eyes and follows movement. Breathing is even and unlabored, currently on trach/ventilator w/ the following setting: Shiley #7, AC-16, PEEP-5, TV-550, FiO2 40%. On tele monitoring, reading of sr, hr in the 80's. Zarate catheter in place, draining urine of yellow color. Gtube intact and patent, feeding of Jevity 1.2 @ 65cc/hr, no residual obtained. JUNIE midline intact and patent. Patient to be picked up at 0900 as per previous shift charge nurse and RN report and that photos of skin issues have been taken already. Safety measures in place: bed locked and on lowest position, sr up x2, call light w/in reach. Will continue to monitor.
[2020-06-04] MEDS: BLOOD SUGAR DIAGNOSTIC 1 EACH STRIP IN SCH ×3 (07:36→17:21)
[2020-06-04] MEDS: LEVOTHYROXINE SODIUM 25 MCG TABLET GT SCH (07:58)
[2020-06-04] MEDS: MUPIROCIN OINT 2% 22 GM TUBE NS SCH (09:00)
[2020-06-04] MEDS: DAKINS QUARTER STRENGTH (0.125%) 480 ML BOTTLE TOP SCH (09:00)
[2020-06-04] MEDS: ZINC SULFATE 220 MG CAPSULE GT SCH (09:00)
[2020-06-04] MEDS: ACIDOPHILUS/BULGARICUS 1 EACH TAB.CHEW GT SCH (10:20)
[2020-06-04] MEDS: FERROUS SULFATE (325 MG) 325 MG/TAB TABLET GT SCH (10:20)
[2020-06-04] MEDS: FINASTERIDE (5 MG) 5 MG TABLET GT SCH (10:20)
[2020-06-04] MEDS: DOXAZOSIN MESYLATE (1 MG) 1 MG TABLET PO SCH (10:21)
[2020-06-04] MEDS: AMLODIPINE BESYLATE 5 MG TABLET GT SCH (10:21)
[2020-06-04] MEDS: ASCORBIC ACID 500 MG TABLET GT SCH ×2 (10:22→16:45)
[2020-06-04] MEDS: POLYETHYLENE GLYCOL 3350 17 GM POWD.PACK GT SCH (10:26)
[2020-06-04] MEDS: LISINOPRIL (20MG) 20 MG TABLET GT SCH (10:26)
[2020-06-04] MEDS: MULTIVITAMINS,THERAGRAN 1 UDTAB TABLET GT SCH (10:26)
[2020-06-04] MEDS: METOPROLOL TARTRATE 50 MG TABLET GT SCH ×2 (10:27→16:48)
--- NOTE | 2020-06-04 14:02 | NUR ---
RN NOTES PATIENT SUPPOSED TO BE PICKED UP TODAY FOR DISCHARGE BACK TO [facility]. AMBULANCE ARRIVED BUT STATED THAT THEIR GURNEY CANNOT ACCOMODATE PATIENT'S WEIGHT. INFORMED CHARGE NURSE ABOUT SITUATION AND CLOTH PRINTING INSPECTOR MADE AWARE; NEW [facility] SPECIALIST TIME OF 1500 FOR TODAY. SPOKE W/ KARI RT FROM [facility], AND MADE AWARE OF CURRENT STATUS.
--- NOTE | 2020-06-04 18:14 | NUR ---
RN NOTES Per case management director, Patito ([phone]) to miner pick patient today at 1999, trip# [id number]. Kendra POWELL ([phone]) at [facility] made aware.
--- NOTE | 2020-06-04 18:54 | NUR ---
DATA ENTRY CLERK CLOSING NOTES Patient is in bed sleeping, non-verbal but able to open eyes when called/touched. Breathing even and unlabored, on trach/ventilator, settings tolerated. On tele monitoring, reading of sr, hr in the mid 70's. Zarate catheter in place, draining yellow-colored urine. Gtube intact and patent, feeding of Jevity 1.2 @ 65cc/hr, no residual obtained. JUNIE midline intact and patent. Patient to be picked up at 1999 as per case technician. Due meds given today. Safety measures maintained: bed locked and on lowest position, sr up x2, call light w/in reach. Will endorse to shift supervisor melting RN for berto.
--- NOTE | 2020-06-04 19:53 | NUR ---
COMMUNITY SPECIALIST OPENING NOTES PT RECEIVED. PT ALERT AND ORIENTED X1. PT NON VERBAL. PT SCHEDULED FOR DISCHARGE. TO BE PICKED UP @1999. G TUBE INTACT. MINIMUM RESIDUAL VOLUME. JUNIE MIDLINE FLUSHING WELL. PATENT. NO OCCLUSION, NO INFILTRATION. MARIN CATHETER INTACT. YELLOW, CLEAR URINE. WILL CONTINUE PLAN OF CARE.
--- NOTE | 2020-06-04 20:52 | NUR ---
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 NO SIGNIFICANT CHANGES. VITAL SIGNS: 142/ 88, PULSE 65, RESP 16, TEMP 98.9, OS SAT 100%. DC TO [facility]. 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 2 EMT, 1 RN. ENDORSED TO RN. WILL CONTINUE PLAN OF CARE.
== END 2020-06-04 20:50 | DRG 710 ==
LOC: ER 17:32 → TRANSITION 22:52 → TELE 05-28 06:01
PROVIDERS: ADMIT Nurse Practitioner Acute Care; ATTEND Nurse Practitioner Acute Care
PROC: 5A1955Z Respiratory Ventilation, Greater than 96 Consecutive Hours (ICD-10-PCS; principal; 2020-05-26)
PROC: 05HY33Z Insertion of Infusion Device into Upper Vein, Percutaneous Approach (ICD-10-PCS; 2020-05-28)
PROC: 0QB10ZZ Excision of Sacrum, Open Approach (ICD-10-PCS; 2020-06-01)
DX: A41.9 Sepsis, unspecified organism (principal); G93.41 Metabolic encephalopathy; R53.2 Functional quadriplegia; B37.49 Other urogenital candidiasis; Z99.11 Dependence on respirator [ventilator] status; Z93.1 Gastrostomy status; Z93.0 Tracheostomy status; J96.21 Acute and chronic respiratory failure with hypoxia; J15.6 Pneumonia due to other Gram-negative bacteria; D68.69 Other thrombophilia; D63.8 Anemia in other chronic diseases classified elsewhere; E03.9 Hypothyroidism, unspecified; E44.0 Moderate protein-calorie malnutrition; E66.2 Morbid (severe) obesity with alveolar hypoventilation; N17.9 Acute kidney failure, unspecified; Z86.16 Personal history of COVID-19; Z86.73 Personal history of transient ischemic attack (TIA), and cerebral infarction without residual deficits; Z87.440 Personal history of urinary (tract) infections; R13.10 Dysphagia, unspecified; Z86.14 Personal history of Methicillin resistant Staphylococcus aureus infection; Z85.528 Personal history of other malignant neoplasm of kidney; Z90.5 Acquired absence of kidney; Z20.822 Contact with and (suspected) exposure to COVID-19; I27.20 Pulmonary hypertension, unspecified; N18.9 Chronic kidney disease, unspecified; I12.9 Hypertensive chronic kidney disease with stage 1 through stage 4 chronic kidney disease, or unspecified chronic kidney disease; D50.9 Iron deficiency anemia, unspecified; L30.4 Erythema intertrigo; L89.154 Pressure ulcer of sacral region, stage 4; Z68.41 Body mass index [BMI] 40.0-44.9, adult; N40.1 Benign prostatic hyperplasia with lower urinary tract symptoms; E11.22 Type 2 diabetes mellitus with diabetic chronic kidney disease
CPT/HCPCS: 31720; 36415; 71045-TC; 80048-TC; 80053-TC; 80061-TC; 80202-TC; 81001; 82962-TC; 83605-TC; 83735-TC; 83880; 84100-TC; 84484-TC; 85025-TC; 85378-TC; 85385-TC; 85730-TC; 86140-TC; 87040-TC; 87070-TC; 87081-TC; 87086-TC; 87186-TC; 94002-TC; 94003-TC; 94760-TC; 94762-TC; 94799-TC; A4216; A4623; A6253; A6403; C9803; G0378; J0692; J1450; J1650; J2405; J2543; J3370; J7030; J7060; U0003